=== PATIENT | male | born 1940 | race Caucasian/White ===

== ENCOUNTER 2016-07-05 05:25 | Observation (INO) | payer OTHER ==
--- NOTE | 2016-07-05 05:26 | EDPHY ---
H & P HPI/ROS: HPI CHIEF COMPLAINT: Chest pain HISTORY OF PRESENT ILLNESS: This patient very pleasant 76-year-old male significant past medical history for coronary artery disease with 1 stent, Parkinson's disease with a GJ tube with infusion of Parkinson medication continuously. His is at bedside and brought him here in the emergency room by private vehicle for chest discomfort and left-sided chest pain. Patient states that around 4 o'clock in the morning he developed discomfort in his chest he woke his up from sleep and states that he had a thump in his chest" and started complaining of left-sided chest discomfort he describes this as a pain" he does not give a great description of his discomfort in his chest and unclear exactly how long it lasted approximately an hour. the patient kept telling his over and over again he had pain in his chest and so she decided to drive him here to the emergency room for evaluation given his coronary artery history. She does tell me that in the morning is more groggy than normal due to his Parkinson's and at times it is very hard to understand him and at times he has a very hard time lying much wrong. She did give him 2 baby aspirins prior to arrival. Upon arrival here he tells me that the pain in his chest is gone. tThe at bedside tells me that he is at his neurological baseline with Parkinson's. She also tells me does not take any blood thinners. No history of DVT or PE. It is noted that he just had a prolonged hospital stay and rehabilitation stay to a left hip fracture he was seen at [facility] for this and then discharged to rehab at [facility] and then went to a long-term facility and then spent some brief 10 days in a hotel. states that he broke his hip she believes May 04 and was discharged around June 07. Past Medical History: Parkinson's disease, coronary disease with 1 stent Past Surgical History: left hip surgery, G/J tube. Social History: Denies use of drugs alcohol tobacco products Family History: Noncontributory ROS REVIEW OF SYSTEMS: A comprehensive 10 point review of systems is otherwise negative aside from elements mentioned in the history of present illness. Exam Constitutional appears well nontoxic, triage nursing summary reviewed, vital signs reviewed, awake/alert. Eyes normal conjunctivae and sclera, EOMI, PERRLA. HENT normal inspection, atraumatic, moist mucus membranes, no epistaxis, neck supple/ no meningismus, no raccoon eyes. Respiratory clear to auscultation bilaterally, normal breath sounds, no respiratory distress, no wheezing. Cardiovascular rate normal, regular rhythm, no murmur, no edema, distal pulses normal. Gastrointestinal peg tube present in abdomen, clean dry and intact, no significant tenderness on exam, soft, non-tender, no rebound, no guarding, normal bowel sounds, no distension, no pulsatile mass. Genitourinary no CVA tenderness. Musculoskeletal no midline vertebral tenderness, full range of motion, no calf swelling, no tenderness of extremities, no meningismus, good pulses, neurovascularly intact. Skin pink, warm, & dry, no rash, skin atraumatic. Neurologic awake, alert and oriented x 3, AAOx3, moves all 4 extremities equally, motor intact, sensory intact, CN II-XII intact, normal cerebellar, normal vision, normal speech. Psychiatric normal mood/affect. Heme/Lymph/Immune no lymphadenopathy. Differential diagnosis includes but is not limited to: ACS, atypical chest pain , pneumothorax, pneumonia, pulmonary embolism, aortic dissection, congestive heart failure, tumor, musculoskeletal pain, esophageal pain, GERD, peptic ulcer disease, pancreatitis Medical Decision Making: This patient had an IV established obtain blood work including cardiac marker he will need a chest x-ray and EKG. Due to his recent prolonged hospitalization and rehab I will check a D-dimer to make sure he does not have a pulmonary embolism. 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 Re-evaluation: EKG interpretation by me on record in [employer] system. Impression the time of EKG 5:33 a.m., this is sinus rhythm rate of 72 is a similar appearing EKG when compared to his old EKG on 11/05/2014 0554; at this time this patient tells me that he is chest pain-free. No complaints. ED x-ray chest one view: Negative for acute cardiopulmonary disease. Image interpreted by myself. 0657: re-examination at this time patient is resting comfortably chest pain- free patient will be admitted to the hospitalist services spoke with Dr. Ybarra agrees for admission. agrees at bedside as well. Plan is for cardiac rule out. Initial troponin negative initial EKG negative D-dimer negative. Chest x-ray unremarkable. Source: Patient - Personal History Tetanus Vaccine Date: < 10 YEARS - Medical/Surgical History Hx Asthma: No Hx Chronic Respiratory Disease: No Hx Diabetes: No Hx Cardiac Disease: Yes Hx Renal Disease: No Hx Cirrhosis: No Hx Alcoholism: No Hx HIV/AIDS: No Hx Splenectomy or Spleen Trauma: No Other PMH: Parkinson's, back surgery, Cardiac stent 2010, CAD, dyslipidemia, ELVIRA , BPH, L shoulder laparascopic rotator cuff repair 04/30/2014 - Social History Smoking Status: Former smoker Constitutional: Initial Vital Signs Temperature (C) 36.6 C 07/05/16 05:25 Heart Rate 75 07/05/16 05:25 Respiratory Rate 24 H 07/05/16 05:25 Blood Pressure 100/69 07/05/16 05:25 O2 Sat (%) 94 07/05/16 05:25 O2 Delivery Mode Nasal Cannula O2 (L/minute) 2 Allergies/Adverse Reactions: meperidine HCl [From Demerol] Allergy (Severe, Verified 07/05/16 05:39) Hypotension Penicillins Allergy (Severe, Verified 07/05/16 05:39) Rash secobarbital sodium [From Seconal] Allergy (Severe, Verified 07/05/16 05:39) Hypotension lorazepam [From Ativan] Allergy (Mild, Verified 07/05/16 05:39) paridoxal effect daptomycin Allergy (Verified 07/05/16 05:39) nitrofurantoin [Nitrofurantoin] Allergy (Verified 07/05/16 05:39) prochlorperazine [From Compazine] Allergy (Unverified 07/05/16 05:39) promethazine HCl [From Phenergan] Allergy (Unverified 07/05/16 05:39) DAPTOMYCINE Allergy (Intermediate, Uncoded 07/05/16 05:39) Rash Home Medications: Medication Instructions Recorded Albuterol [Proventil Inhaler HFA 2 puffs IH DAILY PRN 05/01/14 (*)] Aspirin [Aspirin 325 mg (*)] 325 mg PO HS 05/01/14 Budesonide/Formoterol 160/4.5 2 puffs IH DAILY 05/01/14 [Symbicort 160-4.5 Mcg Inh (*)] Cholecalciferol Vit D3 [Vitamin D3 1,000 units PO DAILY 05/01/14 (*)] Darifenacin Hydrobromide [Enablex] 15 mg PO DAILY@06 05/01/14 Diclofenac Sodium [Voltaren 50 MG 50 mg PO DAILY PRN 05/01/14 (*)] Diclofenac Sodium [Voltaren Gel 1 beatriz TP DAILY PRN 05/01/14 (*)] Finasteride [Proscar 5 MG (*)] 5 mg PO DAILY@05/01/14 Fluticasone Nasal [Flonase Nasal 1 sprays NASAL DAILY 05/01/14 [place]] Glucosamine Sulfate 2Kcl 1,000 mg PO DAILY 05/01/14 [Glucosamine] Ibuprofen [Motrin (*)] 400 mg PO TID PRN 05/01/14 Multivitamins [Multivitamin (*)] 1 each PO DAILY 05/01/14 [place]-3 Fatty Acids [Fish Oil 1000 1,000 mg PO DAILY 05/01/14 mg (*)] Omeprazole 20 mg PO DAILY 05/01/14 QUEtiapine FUMARATE [Seroquel 25 50 mg PO HS 05/01/14 mg (*)] Selegiline HCl [Zelapar] 2.5 mg PO DAILY@05/01/14 Tamsulosin HCl [Flomax 0.4 MG (*)] 0.4 mg PO DAILY@05/01/14 cloZAPine [Clozaril (*)] 50 mg PO HS 11/05/14 Afrin 07/05/16 Duopa 4.63 mg-20 mg/ml Suspens 07/05/16 Folic Acid 07/05/16 Myrbetriq 07/05/16 Stool Softener 07/05/16 Tylenol 07/05/16 VITAMIN E 07/05/16 Medical Decision Making - Data Points Laboratory Results: Laboratory Results 07/05/16 06:15 07/05/16 06:00 07/05/16 07/05/16 06:15 06:00 WBC 6.23 10^3/uL REJ (3.80-9.50) RBC 3.84 L 10^6/uL TNP (4.40-6.38) Hgb 12.3 L g/dL TNP (13.7-17.5) Hct 37.8 L % TNP (40.0-51.0) MCV 98.4 fL TNP (81.5-99.8) MCH 32.0 pg TNP (27.9-34.1) MCHC 32.5 g/dL TNP (32.4-36.7) RDW 13.0 % TNP (11.5-15.2) Plt Count 212 10^3/uL TNP (150-400) MPV 9.2 fL TNP (8.7-11.7) Neut % (Auto) 59.7 % TNP (39.3-74.2) Lymph % (Auto) 26.0 % TNP (15.0-45.0) [place] % (Auto) 7.9 % TNP (4.5-13.0) Eos % (Auto) 5.9 % TNP (0.6-7.6) Baso % (Auto) 0.3 % TNP (0.3-1.7) Nucleat RBC Rel Count 0.0 % TNP (0.0-0.2) Absolute Neuts (auto) 3.72 10^3/uL TNP (1.70-6.50) Absolute Lymphs (auto) 1.62 10^3/uL TNP (1.00-3.00) Absolute Monos (auto) 0.49 10^3/uL TNP (0.30-0.80) Absolute Eos (auto) 0.37 10^3/uL TNP (0.03-0.40) Absolute Basos (auto) 0.02 10^3/uL TNP (0.02-0.10) Absolute Nucleated RBC 0.00 10^3/uL TNP (0-0.01) Immature Gran % 0.2 % TNP (0.0-1.1) Immature Gran # 0.01 10^3/uL TNP (0.00-0.10) PT 15.1 H SEC (12.0-15.0) INR 1.19 H (0.83-1.16) APTT 28.0 SEC (23.0-38.0) D-Dimer 0.40 ug/mLFEU (0.00-0.50) Sodium 138 mEq/L (134-144) Potassium 3.9 mEq/L (3.5-5.2) Chloride 106 mEq/L (97-110) Carbon Dioxide 26 mEq/l (22-31) Anion Gap 6 mEq/L (8-16) BUN 18 mg/dL (7-23) Creatinine 0.6 L mg/dL (0.7-1.3) Estimated GFR > 60 Glucose 87 mg/dL (70-100) Calcium 8.7 mg/dL (8.5-10.4) Magnesium 2.0 mg/dL (1.6-2.3) Total Bilirubin 0.9 mg/dL (0.1-1.4) Conjugated Bilirubin 0.7 H mg/dL (0.0-0.5) Unconjugated Bilirubin 0.2 mg/dL (0.0-1.1) AST 23 IU/L (17-59) ALT 19 L IU/L (21-72) Alkaline Phosphatase 72 IU/L (38-126) Creatine Kinase 103 IU/L (0-224) CK-MB (CK-2) Fraction 2.12 ng/mL (0-3.19) Troponin I < 0.012 ng/mL (0-0.034) NT-Pro-B Natriuret Pep 72 pg/mL (0-125) Total Protein 6.1 L g/dL (6.3-8.2) Albumin 3.6 g/dL (3.5-5.0) Lipase 80.0 IU/L (23-300) Medications Given: Discontinued Medications Aspirin (Aspirin) 324 mg PO EDNOW ONE Stop: 07/05/16 05:32 Last Admin: 07/05/16 06:07 Dose: Not Given Sodium Chloride (Ns) 500 mls @ 0 mls/hr IV ONCE ONE PRN Reason: As Directed Stop: 07/05/16 05:32 Last Admin: 07/05/16 06:00 Dose: 500 mls Departure - Departure Disposition: [facility] Inpatient Acute Clinical Impression: Chest pain Qualifiers: Chest pain type: unspecified Qualifier Code: (R07.9) Chest pain, unspecified Condition: Fair
[2016-07-05] MEDS ORDERED: NITROGLYCERIN 0.4 MG BTL SL PRN (05:31)
[2016-07-05] MEDS ORDERED: NS 500 ML IV ONE (05:31)
[2016-07-05] MEDS ORDERED: ASPIRIN 81 MG CHEWABLE TAB PO ONE (05:31)
--- NOTE | 2016-07-05 05:35 | CPEKG ---
Heart Rate: 72 RR Interval: 833 P-R Interval: 152 QRSD Interval: 96 QT Interval: 376 QTC Interval: 412 P [place]: 85 QRS [place]: 8 T Wave [place]: 52 EKG Severity - NORMAL ECG - EKG Impression: SINUS RHYTHM Electronically Signed By: Isael Oseguera 05-Jul-2016 07:02:04
[2016-07-05 06:17] LABS: INR 1.19 (0.83-1.16); PROTIME(PATIENT) 15.1 SEC (12.0-15.0)
[2016-07-05 06:25] LABS: % IMMATURE GRANULYOCYTES 0.2 % (0.0-1.1); ABSOLUTE IMMATURE GRANULOCYTES 0.01 10^3/uL (0.00-0.10); ADD DIFF? NO; ADD MORPH? NO; ADD SCAN? NO; ATYPICAL LYMPHOCYTE FLAG 0 (0-99); FRAGMENT RBC FLAG 0 (0-99); HEMATOCRIT 37.8 % (40.0-51.0); HEMOGLOBIN 12.3 g/dL (13.7-17.5); LEFT SHIFT FLG 0 (0-99); LIPEMIA HEMOLYSIS FLAG 80 (0-99); MEAN CELL HEMOGLOBIN CONCENTR. 32.5 g/dL (32.4-36.7); MEAN CELL VOLUME 98.4 fL (81.5-99.8); MEAN PLATELET VOLUME 9.2 fL (8.7-11.7); PLATELET CLUMPS FLAG 0 (0-99); PLATELET COUNT 212 10^3/uL (150-400); RED BLOOD CELL COUNT 3.84 10^6/uL (4.40-6.38)
[2016-07-05 06:36] LABS: ALANINE AMINOTRANSFERASE 19 IU/L (21-72); ALBUMIN 3.6 g/dL (3.5-5.0); ALKALINE PHOSPHATASE 72 IU/L (38-126); ANION GAP 6 mEq/L (8-16); ASPARTATE AMINOTRANSFERASE 23 IU/L (17-59); BILIRUBIN,TOTAL 0.9 mg/dL (0.1-1.4); BILIRUBIN-CONJUGATED 0.7 mg/dL (0.0-0.5); BILIRUBIN-UNCONJUGATED 0.2 mg/dL (0.0-1.1); CALCIUM 8.7 mg/dL (8.5-10.4); CARBON DIOXIDE 26 mEq/l (22-31); CHLORIDE 106 mEq/L (97-110); CREATININE 0.6 mg/dL (0.7-1.3); GLOMERULAR FILTRATION RATE > 60; GLUCOSE 87 mg/dL (70-100); POTASSIUM 3.9 mEq/L (3.5-5.2); SODIUM 138 mEq/L (134-144); TOTAL PROTEIN 6.1 g/dL (6.3-8.2)
[2016-07-05 06:47] LABS: CREATINE KINASE-MB FRACTION 2.12 ng/mL (0-3.19); TROPONIN I < 0.012 ng/mL (0-0.034)
[2016-07-05] MEDS ORDERED: ONDANSETRON DISINTEGRATING 4 MG TAB PO PRN (07:17)
[2016-07-05] MEDS ORDERED: ACETAMINOPHEN 325 MG TAB PO PRN (07:17)
[2016-07-05] MEDS ORDERED: HYDROCODONE/APAP 5/325 TAB PO PRN (07:17)
[2016-07-05] MEDS ORDERED: ONDANSETRON 4 MG/2 ML VIAL IVP PRN (07:17)
--- NOTE | 2016-07-05 07:26 | PDGENHP ---
History and Physical - Chief Complaint chest pain - History of Present Illness Patient is 76/M with advanced parkinson's disease, h/o CAD (pci in distant past ) and BPH/recurrent UTIs who presents to the ED with complaint of an episode of chest pain. Pt's provides much of the history. She states patient awoke her at around 4am stating he had suddenly felt a deep thump in his L chest after walking back to the bed from the using restroom. After the initial "thump " he reported some dull epigastric discomfort. There was no associated nausea, lightheadedness, palpitations, diaphoresis and symptoms seemed to have resolved within 20 minutes. However, given the severity of the initial pain and the fact that the patient kept expressing he had never felt something like that before, patient's decided to bring him to the ED. By arrival to the ED patient was asymptomatic, afebrile, with stable VS. Initial EKG is without evidence of ischemia, initial labs including troponin and d dimer were wnl. Patient last had a stress test about 1 year ago here at [facility], which was normal. Patient was then admitted to the hospitalist service for further management. History Information - Allergies/Home Medication List Allergies/Adverse Reactions: meperidine HCl [From Demerol] Allergy (Severe, Verified 07/05/16 05:39) Hypotension Penicillins Allergy (Severe, Verified 07/05/16 05:39) Rash secobarbital sodium [From [place]] Allergy (Severe, Verified 07/05/16 05:39) Hypotension lorazepam [From Ativan] Allergy (Mild, Verified 07/05/16 05:39) paridoxal effect daptomycin Allergy (Verified 07/05/16 05:39) nitrofurantoin [Nitrofurantoin] Allergy (Verified 07/05/16 05:39) prochlorperazine [From Compazine] Allergy (Unverified 07/05/16 05:39) promethazine HCl [From Phenergan] Allergy (Unverified 07/05/16 05:39) DAPTOMYCINE Allergy (Intermediate, Uncoded 07/05/16 05:39) Rash Home Medications: Albuterol [Proventil Inhaler HFA (*)] 2 puffs IH DAILY PRN 05/01/14 [Last Taken Unknown] Aspirin [Aspirin 325 mg (*)] 325 mg PO HS 05/01/14 [Last Taken 11/04/14] Budesonide/Formoterol 160/4.5 [Symbicort 160-4.5 Mcg Inh (*)] 2 puffs IH DAILY 05/01/14 [Last Taken 11/03/14] Cholecalciferol Vit D3 [Vitamin D3 (*)] 1,000 units PO DAILY 05/01/14 [Last Taken 11/04/14] Darifenacin Hydrobromide [Enablex] 15 mg PO DAILY@05/01/14 [Last Taken ] Diclofenac Sodium [Voltaren 50 MG (*)] 50 mg PO DAILY PRN 05/01/14 [Last Taken Unknown] Diclofenac Sodium [Voltaren Gel (*)] 1 beatriz TP DAILY PRN 05/01/14 [Last Taken Unknown] Finasteride [Proscar 5 MG (*)] 5 mg PO DAILY@05/01/14 [Last Taken 11/04/14] Fluticasone Nasal [Flonase Nasal [place]] 1 sprays NASAL DAILY 05/01/14 [Last Taken 11/04/14] Glucosamine Sulfate 2Kcl [Glucosamine] 1,000 mg PO DAILY 05/01/14 [Last Taken ] Ibuprofen [Motrin (*)] 400 mg PO TID PRN 05/01/14 [Last Taken Unknown] Multivitamins [Multivitamin (*)] 1 each PO DAILY 05/01/14 [Last Taken 11/04/14] Sal[place]-3 Fatty Acids [Fish Oil 1000 mg (*)] 1,000 mg PO DAILY 05/01/14 [Last Taken 11/04/14] Omeprazole 20 mg PO DAILY 05/01/14 [Last Taken 11/04/14] QUEtiapine FUMARATE [Seroquel 25 mg (*)] 50 mg PO HS 05/01/14 [Last Taken ] Selegiline HCl [Zelapar] 2.5 mg PO DAILY@05/01/14 [Last Taken 11/05/14 06:00] Tamsulosin HCl [Flomax 0.4 MG (*)] 0.4 mg PO DAILY@05/01/14 [Last Taken 11/05 06:00] cloZAPine [Clozaril (*)] 50 mg PO HS 11/05/14 [Last Taken 11/04/14] Afrin 07/05/16 [Last Taken Unknown] Duopa 4.63 mg-20 mg/ml Suspens 07/05/16 [Last Taken Unknown] Folic Acid 07/05/16 [Last Taken Unknown] Myrbetriq 07/05/16 [Last Taken Unknown] Stool Softener 07/05/16 [Last Taken Unknown] Tylenol 07/05/16 [Last Taken Unknown] VITAMIN E 07/05/16 [Last Taken Unknown] I have personally reviewed and updated: family history, medical history, social history, surgical history - Past Medical History Additional medical history: Advanced parkinson's dementia. CAD (PCI x 1 > 5 years ago). recent hospitalization for fall resulting in L hip fracture at [facility], s/p subacute rehab stay, recently discharged home. BPH with recurrent UTIs - Surgical History Additional surgical history: spinal fusion surgeries. hernia repair. rotator cuff repair - Family History Positive for: non-pertinent - Social History Smoking Status: Former smoker Alcohol Use: None Drug Use: None Additional social history: Patient lives with his and is dependent on her for most ADLs. Usually walks independently, occasionally uses walker. Review of Systems ROS: 10pt was reviewed & negative except for what was stated in HPI & below Physical Exam Temp Pulse Resp BP Pulse Ox 36.6 C 68 18 118/76 99 07/05/16 05:25 07/05/16 07:13 07/05/16 07:13 07/05/16 07:13 07/05/16 07:13 O2 (L/minute) 2 Constitutional: appears nourished, not in pain, chronically ill appearing Eyes: PERRL, anicteric sclera, EOMI Ears, Nose, Mouth, Throat: moist mucous membranes, hearing normal, ears appear normal, no oral mucosal ulcers Cardiovascular: regular rate and rhythym, no murmur, rub, or gallop, pulses symmetric bilaterally, No JVD, No edema Peripheral Pulses: 2+: dorsalis-pedis (R), dorsalis-pedis (L) Respiratory: no respiratory distress, no rales or rhonchi, clear to auscultation Gastrointestinal: normoactive bowel sounds, soft, non-tender abdomen, no palpable masses, other (J-tube present for drug infusion) Genitourinary: no bladder fullness, no bladder tenderness Skin: warm, normal color, no rashes or abrasions, no fluctuance, no induration, No mottled Musculoskeletal: full muscle strength, no muscle tenderness Neurologic: AAOx3, sensation intact bilaterally, CN II-XII Intact, No weakness, No numbness Psychiatric: interacting appropriately, not anxious, not encephalopathic, thought process linear Lab Data & Imaging Review 07/05/16 06:15 07/05/16 06:00 WBC 6.23 10^3/uL (3.80-9.50) 07/05/16 06:15 RBC 3.84 10^6/uL (4.40-6.38) L 07/05/16 06:15 Hgb 12.3 g/dL (13.7-17.5) L 07/05/16 06:15 Hct 37.8 % (40.0-51.0) L 07/05/16 06:15 MCV 98.4 fL (81.5-99.8) 07/05/16 06:15 MCH 32.0 pg (27.9-34.1) 07/05/16 06:15 MCHC 32.5 g/dL (32.4-36.7) 07/05/16 06:15 RDW 13.0 % (11.5-15.2) 07/05/16 06:15 Plt Count 212 10^3/uL (150-400) 07/05/16 06:15 MPV 9.2 fL (8.7-11.7) 07/05/16 06:15 Neut % (Auto) 59.7 % (39.3-74.2) 07/05/16 06:15 Lymph % (Auto) 26.0 % (15.0-45.0) 07/05/16 06:15 [place] % (Auto) 7.9 % (4.5-13.0) 07/05/16 06:15 Eos % (Auto) 5.9 % (0.6-7.6) 07/05/16 06:15 Baso % (Auto) 0.3 % (0.3-1.7) 07/05/16 06:15 Nucleat RBC Rel Count 0.0 % (0.0-0.2) 07/05/16 06:15 Absolute Neuts (auto) 3.72 10^3/uL (1.70-6.50) 07/05/16 06:15 Absolute Lymphs (auto) 1.62 10^3/uL (1.00-3.00) 07/05/16 06:15 Absolute Monos (auto) 0.49 10^3/uL (0.30-0.80) 07/05/16 06:15 Absolute Eos (auto) 0.37 10^3/uL (0.03-0.40) 07/05/16 06:15 Absolute Basos (auto) 0.02 10^3/uL (0.02-0.10) 07/05/16 06:15 Absolute Nucleated RBC 0.00 10^3/uL (0-0.01) 07/05/16 06:15 Immature Gran % 0.2 % (0.0-1.1) 07/05/16 06:15 Immature Gran # 0.01 10^3/uL (0.00-0.10) 07/05/16 06:15 PT 15.1 SEC (12.0-15.0) H 07/05/16 06:00 INR 1.19 (0.83-1.16) H 07/05/16 06:00 APTT 28.0 SEC (23.0-38.0) 07/05/16 06:00 D-Dimer 0.40 ug/mLFEU (0.00-0.50) 07/05/16 06:00 Sodium 138 mEq/L (134-144) 07/05/16 06:00 Potassium 3.9 mEq/L (3.5-5.2) 07/05/16 06:00 Chloride 106 mEq/L (97-110) 07/05/16 06:00 Carbon Dioxide 26 mEq/l (22-31) 07/05/16 06:00 Anion Gap 6 mEq/L (8-16) 07/05/16 06:00 BUN 18 mg/dL (7-23) 07/05/16 06:00 Creatinine 0.6 mg/dL (0.7-1.3) L 07/05/16 06:00 Estimated GFR > 60 07/05/16 06:00 Glucose 87 mg/dL (70-100) 07/05/16 06:00 Calcium 8.7 mg/dL (8.5-10.4) 07/05/16 06:00 Magnesium 2.0 mg/dL (1.6-2.3) 07/05/16 06:00 Total Bilirubin 0.9 mg/dL (0.1-1.4) 07/05/16 06:00 Conjugated Bilirubin 0.7 mg/dL (0.0-0.5) H 07/05/16 06:00 Unconjugated Bilirubin 0.2 mg/dL (0.0-1.1) 07/05/16 06:00 AST 23 IU/L (17-59) 07/05/16 06:00 ALT 19 IU/L (21-72) L 07/05/16 06:00 Alkaline Phosphatase 72 IU/L (38-126) 07/05/16 06:00 Creatine Kinase 103 IU/L (0-224) 07/05/16 06:00 CK-MB (CK-2) Fraction 2.12 ng/mL (0-3.19) 07/05/16 06:00 Troponin I < 0.012 ng/mL (0-0.034) 07/05/16 06:00 NT-Pro-B Natriuret Pep 72 pg/mL (0-125) 07/05/16 06:00 Total Protein 6.1 g/dL (6.3-8.2) L 07/05/16 06:00 Albumin 3.6 g/dL (3.5-5.0) 07/05/16 06:00 Lipase 80.0 IU/L (23-300) 07/05/16 06:00 Visualized and Interpreted Chest x-ray results: Yes Chest X-Ray results: no infiltrate, normal Visualized and Interpreted EKG results: Yes EKG Interpretation: Positive for: normal sinsus rhythm. Negative for: NS ST wave abnormalities Assessment & Plan Assessment: Patient is 76/M with advanced parkinson's disease and h/o CAD who presents to the ED after an episode of sudden intense L sided chest pain. Initial ED w/u unrevealing. Plan: # chest pain Atypical in description, however, given pt's cardiac history and risk factors, will r/o ACS. Differential also includes gastritis/gerd. Will admit under observation status, trend troponins, repeat EKG. Given normal nuclear stress test in 2014, and patient and his 's hesitance for a long hospital stay (> 10 hrs) due to his PD med needs. Pt's website optimization strategist is Dr. Staples, will asses need for inpt stress vs arranging an outpt study. # advanced parkinson's disease Per pt's , he is at his baseline neurologic status, and usually is unless there is any interruption in his med dosing. Will attempt to maintain continuity in this. # BPH No urinary symptoms, UA negative, will cont home med. # chronic back pain Cont home pain regimen. No complaint of acute pain # dispo: admit to observation status to r/o ACS # full code
[2016-07-05] MEDS ORDERED: ENOXAPARIN 40 MG/0.4 ML SYR SC SCH (09:00)
--- NOTE | 2016-07-05 09:40 | DX ---
Portable AP upright chest July 05, 2016, 0546 hours HISTORY: Chest pain. FINDINGS: Compare 2015, 2014, 2013. Lungs are clear and there are no pleural effusions. Heart size is normal. No pneumothorax. Spinal fusion hardware is found at the thoracolumbar junction. IMPRESSION: No acute cardiopulmonary features.
[2016-07-05 10:04] VITALS: BP 137/87; PULSE 59; RESP 13; TEMP 96.8; O2SAT 97
--- NOTE | 2016-07-05 14:58 | GDS ---
[f rep st] DISCHARGE SUMMARY DISCHARGE DIAGNOSES: 1. Chest pain with negative enzymes and electrocardiogram. 2. History of coronary artery disease, status post percutaneous transluminal coronary angioplasty an d stenting in 2010 to the left circumflex. 3. History of BPH. 4. History of sleep apnea. 5. History of Parkinson disease. 6. History for frequent urinary tract infections. BRIEF HISTORY: Please see dictated H and P for complete details. In brief, Giovanny Russo is a 76-year-old male with a history of known CAD, Parkinson disease, BPH, and recurrent UTIs, who was zander kened to urinate at 4 am today. Upon returning to bed, he noted a "thump" in his chest. There was n o associated nausea, lightheadedness, dizziness, or palpitation. Symptoms were brief and did not rec ur. He ECG and enzymes have been negative. Options were reviewed, and patient and his prefer t o be discharged home for outpatient stress testing. In 2012, he did have a chest pain episode, for which he proceeded to cardiac catheterization. That s howed patent stents, and there was a 35-40% ostial lesion in the circumflex and LAD had minimal lumin al irregularities. In 2014, he had a chest pain episode, for which a nuclear stress test was obtain ed and was negative for ischemia. RESULTS PENDING: None. DIET: Per previous. ACTIVITY: As tolerated. DISCHARGE MEDICATIONS: Please see med reconciliation. FOLLOWUP: 1. Lexiscan stress test this week. 2. Follow up after testing. /[id number]/[id number]
== END 2016-07-05 14:08 | disposition home or self-care (01) ==
LOC: F2W 08:16
PROVIDERS: ADMIT Internal Medicine; ATTEND Internal Medicine Cardiovascular Disease
DX: R07.9 Chest pain, unspecified (principal); I25.10 Atherosclerotic heart disease of native coronary artery without angina pectoris; Z95.5 Presence of coronary angioplasty implant and graft; N40.0 Benign prostatic hyperplasia without lower urinary tract symptoms; G47.33 Obstructive sleep apnea (adult) (pediatric); G20 Parkinson's disease
CPT/HCPCS: 71010; 93005; 96360; 99285; G0378

== ENCOUNTER → 2016-07-17 | Outpatient (CLI) | payer OTHER | LOC: BHFA 13:00 | PROVIDERS: ATTEND Internal Medicine Cardiovascular Disease | DX: R07.9 Chest pain, unspecified (principal); Z79.899 Other long term (current) drug therapy | CPT/HCPCS: 78452; 93017; A9500; J2785 ==

== ENCOUNTER → 2016-08-01 | Outpatient (CLI) | payer OTHER | LOC: FIMAGING 10:57 | PROVIDERS: ATTEND Family Medicine | DX: M54.5 Low back pain (principal); M25.551 Pain in right hip; M25.552 Pain in left hip; M53.3 Sacrococcygeal disorders, not elsewhere classified; S72.111D Displaced fracture of greater trochanter of right femur, subsequent encounter for closed fracture with routine healing ==

== ENCOUNTER → 2016-10-04 | Outpatient (CLI) | payer OTHER | LOC: FLAB 13:22 → FIMAGING 13:22 → EDSTATUS 13:40 | PROVIDERS: ATTEND Family Medicine | DX: J98.4 Other disorders of lung (principal); G20 Parkinson's disease ==

== ENCOUNTER 2016-10-05 12:46 | Inpatient (IN) | payer OTHER ==
--- NOTE | 2016-10-05 13:05 | EDPHY ---
H & P Time Seen by Provider: 10/05/16 12:59 HPI/ROS: CHIEF COMPLAINT: Altered mental status HISTORY OF PRESENT ILLNESS: History from patient and his . He has a long history of Parkinson's disease and typically gets more confused when he gets an infection especially frequent UTIs. Patient started new medicines selegiline last week and only took it for 3 days and stop Sunday. Yesterday he had some yellow liquid gushing from his feeding tube stoma aureus constantly getting infusion of Duopa. Over the past week he has started coughing which is nonproductive and not associated with shortness of breath but was seen at his primary care physician practice yesterday and started on moxifloxacin and had a chest x-ray which was interpreted as right upper lung pneumonia, probably aspiration. His speech therapist has been concerned about aspiration for several months ice his swallowing is been compromised because of his Parkinson' s. Today is more confused according to his . His speech is more difficult to understand. Not associated with headache or weakness or numbness in extremities particularly. REVIEW OF SYSTEMS: Eye: no change in vision ENT: no sore throat Cardiac: no chest pain or syncope Pulmonary: As in HPI Abdomen: no vomiting, diarrhea, abdominal pain Musculoskeletal: no back pain Skin: no rash Neuro: As in HPI Constitutional: no fever : no urinary symptoms A comprehensive 10 point review of systems is otherwise negative aside from elements mentioned in the history of present illness. PAST MEDICAL HISTORY: Includes Parkinson's disease, coronary disease with stenting in 2010, hyperlipidemia, prostatic hypertrophy, left shoulder rotator cuff surgery April 2014, obstructive sleep apnea. Social history: Ex smoker, General Appearance: Alert and follows commands. Eyes: No scleral icterus. ENT, Mouth: Dry mucous membranes. Respiratory: Slight crackles in all lung [place], no retractions. Cardiovascular: Regular rate and rhythm. Gastrointestinal: Abdomen is soft and non tender. Neurological: Alert, follows commands, speech is impaired by Parkinson's, a little bit worse than baseline per . Spontaneously moving all 4 extremitis. Skin: Warm and dry, no rashes. Musculoskeletal: No peripheral edema and no joint swelling. Psychiatric: Not agitated. Emergency Department course/MDM: Discussed with Maycol Howard, 1324; start Ertapenem, admit. Does not meet SIRS criteria in the emergency department. Negative lactate. Invanz 1g given in ED without reaction. Smoking Status: Former smoker Constitutional: Initial Vital Signs Temperature (C) 36.6 C 10/05/16 12:54 Heart Rate 90 10/05/16 12:54 Respiratory Rate 18 10/05/16 12:54 Blood Pressure 98/70 L 10/05/16 12:54 O2 Sat (%) 92 10/05/16 12:54 O2 Delivery Mode Room Air Allergies/Adverse Reactions: meperidine HCl [From Demerol] Allergy (Severe, Verified 10/05/16 12:51) Hypotension Penicillins Allergy (Severe, Verified 10/05/16 14:23) Rash/HIVES secobarbital sodium [From Seconal] Allergy (Severe, Verified 10/05/16 12:51) Hypotension lorazepam [From Ativan] Allergy (Mild, Verified 10/05/16 12:51) paridoxal effect daptomycin Allergy (Verified 10/05/16 12:51) nitrofurantoin [Nitrofurantoin] Allergy (Verified 10/05/16 12:51) prochlorperazine [From Compazine] Allergy (Verified 10/05/16 12:51) promethazine HCl [From Phenergan] Allergy (Verified 10/05/16 12:51) DAPTOMYCINE Allergy (Intermediate, Uncoded 07/05/16 05:39) Rash Home Medications: Medication Instructions Recorded Albuterol [Proventil Inhaler HFA 2 puffs IH DAILY PRN 05/01/14 (*)] Cholecalciferol Vit D3 [Vitamin D3 1,000 units PO DAILY 05/01/14 (*)] Darifenacin Hydrobromide [Enablex] 15 mg PO HS 05/01/14 Diclofenac Sodium [Voltaren Gel 1 beatriz TP BID PRN 05/01/14 (*)] Finasteride [Proscar 5 MG (*)] 5 mg PO DAILY 05/01/14 Fluticasone Nasal [Flonase Nasal 1 sprays NASAL DAILY 05/01/14 [place]] Omeprazole 40 mg PO BID 05/01/14 QUEtiapine FUMARATE [Seroquel 25 62.5 mg PO HS 05/01/14 mg (*)] Tamsulosin HCl [Flomax 0.4 MG (*)] 0.4 mg PO DAILY 05/01/14 cloZAPine [Clozaril (*)] 75 mg PO HS 11/05/14 Acetaminophen [Tylenol ES 500 mg 500 mg PO DAILY PRN 07/05/16 (*)] Aspirin [Aspirin 81mg (*)] 162 mg PO HS 07/05/16 Carbidopa/Levodopa [Duopa 4.63 0 ml MC TID 07/05/16 mg-20 mg/ml Suspens] Cyanocobalamin [Vitamin B12 (*)] 500 mcg PO DAILY 07/05/16 Folic Acid [Folic Acid 1 MG (*)] 800 mcg PO DAILY 07/05/16 Glucosamine Sulfate [Glucosamine 500 mg PO DAILY 07/05/16 Sulfate 500 MG (*)] Herbals/Supplements -Info Only 1 ea PO DAILY 07/05/16 Mirabegron [Myrbetriq] 25 mg PO HS 07/05/16 Budesonide/Formoterol Fumarate 2 puffs IH BID 10/05/16 [Symbicort 80-4.5 Mcg Inhaler] Diclofenac Sodium [Voltaren 75 MG 75 mg PO DAILY PRN 10/05/16 (*)] Methocarbamol [Robaxin 750 mg (*)] 750 mg PO DAILY PRN 10/05/16 Moxifloxacin [Avelox 400 mg (*)] 400 mg PO DAILY 10/05/16 Medical Decision Making - Diagnostics Imaging Results: Chest x-ray viewed independently by myself and interpreted shows worsening right upper lung infiltrate. Imaging: I viewed and interpreted images myself Differential Diagnosis: Differential for altered mental status considered including but not limited to stroke, ICH, TANK CALIBRATOR infection, UTI, pneumonia, metabolic. Consult/Admit Bed Type: [place] [id number] - Data Points Laboratory Results: Laboratory Results 10/05/16 13:23 10/05/16 13:20 10/05/16 10/05/16 10/05/16 13:30 13:23 13:23 WBC 5.18 10^3/uL 10^3/uL (3.80-9.50) RBC 3.82 10^6/uL L 10^6/uL (4.40-6.38) Hgb 12.1 g/dL L g/dL (13.7-17.5) Hct 36.9 % L % (40.0-51.0) MCV 96.6 fL fL (81.5-99.8) MCH 31.7 pg pg (27.9-34.1) MCHC 32.8 g/dL g/dL (32.4-36.7) RDW 14.0 % % (11.5-15.2) Plt Count 180 10^3/uL 10^3/uL (150-400) MPV 9.8 fL fL (8.7-11.7) Neut % (Auto) 80.1 % H % (39.3-74.2) Lymph % (Auto) 10.8 % L % (15.0-45.0) [place] % (Auto) 8.3 % % (4.5-13.0) Eos % (Auto) 0.4 % L % (0.6-7.6) Baso % (Auto) 0.0 % L % (0.3-1.7) Nucleat RBC Rel Count 0.0 % % (0.0-0.2) Absolute Neuts (auto) 4.15 10^3/uL 10^3/uL (1.70-6.50) Absolute Lymphs (auto) 0.56 10^3/uL L 10^3/uL (1.00-3.00) Absolute Monos (auto) 0.43 10^3/uL 10^3/uL (0.30-0.80) Absolute Eos (auto) 0.02 10^3/uL L 10^3/uL (0.03-0.40) Absolute Basos (auto) 0.00 10^3/uL L 10^3/uL (0.02-0.10) Absolute Nucleated RBC 0.00 10^3/uL 10^3/uL (0-0.01) Immature Gran % 0.4 % % (0.0-1.1) Immature Gran # 0.02 10^3/uL 10^3/uL (0.00-0.10) PT 14.8 SEC SEC (12.0-15.0) INR 1.16 (0.83-1.16) APTT 30.9 SEC SEC (23.0-38.0) VBG Lactic Acid 1.6 mmol/L mmol/L (0.7-2.1) Sodium Potassium Chloride Carbon Dioxide Anion Gap BUN Creatinine Estimated GFR Glucose Calcium Total Bilirubin 10/05/16 13:20 WBC RBC Hgb Hct MCV MCH MCHC RDW Plt Count MPV Neut % (Auto) Lymph % (Auto) [place] % (Auto) Eos % (Auto) Baso % (Auto) Nucleat RBC Rel Count Absolute Neuts (auto) Absolute Lymphs (auto) Absolute Monos (auto) Absolute Eos (auto) Absolute Basos (auto) Absolute Nucleated RBC Immature Gran % Immature Gran # PT INR APTT VBG Lactic Acid Sodium 140 mEq/L mEq/L (134-144) Potassium 4.1 mEq/L mEq/L (3.5-5.2) Chloride 107 mEq/L mEq/L (97-110) Carbon Dioxide 24 mEq/l mEq/l (22-31) Anion Gap 9 mEq/L mEq/L (8-16) BUN 17 mg/dL mg/dL (7-23) Creatinine 0.5 mg/dL L mg/dL (0.7-1.3) Estimated GFR > 60 Glucose 123 mg/dL H mg/dL (70-100) Calcium 8.6 mg/dL mg/dL (8.5-10.4) Total Bilirubin 0.9 mg/dL mg/dL (0.1-1.4) Medications Given: Discontinued Medications Ertapenem 1 gm/ Sodium (Chloride) 100 mls @ 200 mls/hr IV EDNOW ONE PRN Reason: Protocol Stop: 10/05/16 14:32 Last Admin: 10/05/16 14:37 Dose: 100 mls Sodium Chloride (Ns) 1,000 mls @ 0 mls/hr IV ONCE ONE PRN Reason: Wide Open Stop: 10/05/16 14:22 Last Admin: 10/05/16 14:37 Dose: 1,000 mls Departure - Departure Disposition: [facility] In[facility] Acute Clinical Impression: Aspiration pneumonia Qualifiers: Aspiration pneumonia type: unspecified Laterality: right Lung location: upper lobe of lung Qualified Code(s): J69.0 - Pneumonitis due to inhalation of food and vomit Condition: Good
[2016-10-05 13:51] LABS: % IMMATURE GRANULYOCYTES 0.4 % (0.0-1.1); ABSOLUTE IMMATURE GRANULOCYTES 0.02 10^3/uL (0.00-0.10); ADD DIFF? NO; ADD MORPH? NO; ADD SCAN? NO; ATYPICAL LYMPHOCYTE FLAG 0 (0-99); FRAGMENT RBC FLAG 0 (0-99); HEMATOCRIT 36.9 % (40.0-51.0); HEMOGLOBIN 12.1 g/dL (13.7-17.5); LEFT SHIFT FLG 0 (0-99); LIPEMIA HEMOLYSIS FLAG 80 (0-99); MEAN CELL HEMOGLOBIN 31.7 pg (27.9-34.1); MEAN CELL HEMOGLOBIN CONCENTR. 32.8 g/dL (32.4-36.7); MEAN CELL VOLUME 96.6 fL (81.5-99.8); MEAN PLATELET VOLUME 9.8 fL (8.7-11.7); PLATELET CLUMPS FLAG 0 (0-99); PLATELET COUNT 180 10^3/uL (150-400); RED BLOOD CELL COUNT 3.82 10^6/uL (4.40-6.38)
[2016-10-05] MEDS ORDERED: ERTAPENEM 1 GM in NS 100 ML IV ONE (14:03)
[2016-10-05 14:07] LABS: APTT 30.9 SEC (23.0-38.0); INR 1.16 (0.83-1.16); PROTIME(PATIENT) 14.8 SEC (12.0-15.0)
[2016-10-05 14:16] LABS: ANION GAP 9 mEq/L (8-16); BILIRUBIN,TOTAL 0.9 mg/dL (0.1-1.4); CALCIUM 8.6 mg/dL (8.5-10.4); CARBON DIOXIDE 24 mEq/l (22-31); CHLORIDE 107 mEq/L (97-110); CREATININE 0.5 mg/dL (0.7-1.3); GLOMERULAR FILTRATION RATE > 60; GLUCOSE 123 mg/dL (70-100); POTASSIUM 4.1 mEq/L (3.5-5.2); SODIUM 140 mEq/L (134-144)
[2016-10-05] MEDS ORDERED: NS 1,000 ML IV ONE (14:21)
--- NOTE | 2016-10-05 15:06 | PDGENHP ---
History and Physical - Chief Complaint altered mental status - History of Present Illness 76 y/o male with history of advanced Parkinson's with dementia and dysphagia presents with confusion this morning. He was diagnosed with a possible aspiration pneumonia yesterday and started on Moxifloxacin. He has not been eating much over the past few days but has been noted to be having problems with his swallowing. His reports some shortness of breath and productive cough with clear mucous. His cough has been ongoing for the past several days. Denies fevers or chills. His reports some drainage from around his Stoma from his medication pump. He has had worsening swallowing problems over the past 6 months and has trouble taking pills. his been working with the speech therapist has recommended a video swallow study that is scheduled for 2 weeks for now. History Information - Allergies/Home Medication List Allergies/Adverse Reactions: meperidine HCl [From Demerol] Allergy (Severe, Verified 10/05/16 12:51) Hypotension Penicillins Allergy (Severe, Verified 10/05/16 14:23) Rash/HIVES secobarbital sodium [From Seconal] Allergy (Severe, Verified 10/05/16 12:51) Hypotension lorazepam [From Ativan] Allergy (Mild, Verified 10/05/16 12:51) paridoxal effect daptomycin Allergy (Verified 10/05/16 12:51) nitrofurantoin [Nitrofurantoin] Allergy (Verified 10/05/16 12:51) prochlorperazine [From Compazine] Allergy (Verified 10/05/16 12:51) promethazine HCl [From Phenergan] Allergy (Verified 10/05/16 12:51) DAPTOMYCINE Allergy (Intermediate, Uncoded 07/05/16 05:39) Rash Home Medications: Albuterol [Proventil Inhaler HFA (*)] 2 puffs IH DAILY PRN 05/01/14 [Last Taken Unknown] Cholecalciferol Vit D3 [Vitamin D3 (*)] 1,000 units PO DAILY 05/01/14 [Last Taken 10/05/16] Darifenacin Hydrobromide [Enablex] 15 mg PO HS 05/01/14 [Last Taken 10/04/16] Diclofenac Sodium [Voltaren Gel (*)] 1 beatriz TP BID PRN 05/01/14 [Last Taken Unknown] Finasteride [Proscar 5 MG (*)] 5 mg PO DAILY 05/01/14 [Last Taken 10/05/16] Fluticasone Nasal [Flonase Nasal [place]] 1 sprays NASAL DAILY 05/01/14 [Last Taken 10/05/16] Omeprazole 40 mg PO BID 05/01/14 [Last Taken 10/05/16 80mg] QUEtiapine FUMARATE [Seroquel 25 mg (*)] 62.5 mg PO HS 05/01/14 [Last Taken ] Tamsulosin HCl [Flomax 0.4 MG (*)] 0.4 mg PO DAILY 05/01/14 [Last Taken 10/05/16 ] cloZAPine [Clozaril (*)] 75 mg PO HS 11/05/14 [Last Taken 10/04/16] Acetaminophen [Tylenol ES 500 mg (*)] 500 mg PO DAILY PRN 07/05/16 [Last Taken Unknown] Aspirin [Aspirin 81mg (*)] 162 mg PO HS 07/05/16 [Last Taken 10/04/16] Carbidopa/Levodopa [Duopa 4.63 mg-20 mg/ml Suspens] 0 ml MC TID 07/05/16 [Last Taken 10/05/16] Cyanocobalamin [Vitamin B12 (*)] 500 mcg PO DAILY 07/05/16 [Last Taken 10/05/16] Folic Acid [Folic Acid 1 MG (*)] 800 mcg PO DAILY 07/05/16 [Last Taken 10/05/16] Glucosamine Sulfate [Glucosamine Sulfate 500 MG (*)] 500 mg PO DAILY 07/05/16 [ Last Taken 10/05/16] Herbals/Supplements -Info Only 1 ea PO DAILY 07/05/16 [Last Taken Unknown] Mirabegron [Myrbetriq] 25 mg PO HS 07/05/16 [Last Taken 10/04/16] Budesonide/Formoterol Fumarate [Symbicort 80-4.5 Mcg Inhaler] 2 puffs IH BID [Last Taken 10/05/16] Diclofenac Sodium [Voltaren 75 MG (*)] 75 mg PO DAILY PRN 10/05/16 [Last Taken Unknown] Methocarbamol [Robaxin 750 mg (*)] 750 mg PO DAILY PRN 10/05/16 [Last Taken Unknown] Moxifloxacin [Avelox 400 mg (*)] 400 mg PO DAILY 10/05/16 [Last Taken 10/05/16] I have personally reviewed and updated: family history, medical history, social history, surgical history - Past Medical History Additional medical history: Advanced parkinson's dementia. CAD (PCI x 1 > 5 years ago) with hospital stay in 06/2015 for chest pain. hospitalization for fall resulting in L hip fracture at [facility], s/p subacute rehab stay, recently discharged home. BPH with recurrent UTIs - Surgical History Additional surgical history: spinal fusion surgeries. hernia repair. rotator cuff repair. PEG tube - Family History Positive for: non-pertinent - Social History Smoking Status: Former smoker Additional social history: Patient lives with his and is dependent on her for most ADLs. Usually walks independently, occasionally uses walker. Review of Systems ROS: 10pt was reviewed & negative except for what was stated in HPI & below Physical Exam Temp Pulse Resp BP Pulse Ox 36.9 C 78 14 115/56 L 96 10/05/16 14:40 10/05/16 14:40 10/05/16 14:40 10/05/16 14:40 10/05/16 14:40 Constitutional: no apparent distress, appears nourished, not in pain Eyes: PERRL, anicteric sclera, EOMI Ears, Nose, Mouth, Throat: moist mucous membranes, hearing normal, ears appear normal, no oral mucosal ulcers Cardiovascular: regular rate and rhythym, no murmur, rub, or gallop, No edema Respiratory: no respiratory distress, reduced air movement ( Right lung field) , No expiratory wheeze, No inspiratory crackles Gastrointestinal: normoactive bowel sounds, soft, non-tender abdomen, no palpable masses, other ( medication pump tubing is in place going into what appears to be in the stomach; no signs of infection), No guarding, No rebound Genitourinary: no bladder fullness, no bladder tenderness Skin: warm, normal color, no rashes or abrasions, no fluctuance, no induration, No mottled Musculoskeletal: full muscle strength, no muscle tenderness, normal joint ROM, no joint effusions Neurologic: CN II-XII Intact, No AAOx3 ( oriented to person and day but not place), No facial droop Psychiatric: encephalopathic, poor insight, poor judgement, poor memory Lymph, Heme, Immunologic: no cervical LAD, no supraclavicular LAD Lab Data & Imaging Review 10/05/16 13:23 10/05/16 13:20 WBC 5.18 10^3/uL (3.80-9.50) 10/05/16 13:23 RBC 3.82 10^6/uL (4.40-6.38) L 10/05/16 13:23 Hgb 12.1 g/dL (13.7-17.5) L 10/05/16 13:23 Hct 36.9 % (40.0-51.0) L 10/05/16 13:23 MCV 96.6 fL (81.5-99.8) 10/05/16 13:23 MCH 31.7 pg (27.9-34.1) 10/05/16 13:23 MCHC 32.8 g/dL (32.4-36.7) 10/05/16 13:23 RDW 14.0 % (11.5-15.2) 10/05/16 13:23 Plt Count 180 10^3/uL (150-400) 10/05/16 13:23 MPV 9.8 fL (8.7-11.7) 10/05/16 13:23 Neut % (Auto) 80.1 % (39.3-74.2) H 10/05/16 13:23 Lymph % (Auto) 10.8 % (15.0-45.0) L 10/05/16 13:23 [place] % (Auto) 8.3 % (4.5-13.0) 10/05/16 13:23 Eos % (Auto) 0.4 % (0.6-7.6) L 10/05/16 13:23 Baso % (Auto) 0.0 % (0.3-1.7) L 10/05/16 13:23 Nucleat RBC Rel Count 0.0 % (0.0-0.2) 10/05/16 13:23 Absolute Neuts (auto) 4.15 10^3/uL (1.70-6.50) 10/05/16 13:23 Absolute Lymphs (auto) 0.56 10^3/uL (1.00-3.00) L 10/05/16 13:23 Absolute Monos (auto) 0.43 10^3/uL (0.30-0.80) 10/05/16 13:23 Absolute Eos (auto) 0.02 10^3/uL (0.03-0.40) L 10/05/16 13:23 Absolute Basos (auto) 0.00 10^3/uL (0.02-0.10) L 10/05/16 13:23 Absolute Nucleated RBC 0.00 10^3/uL (0-0.01) 10/05/16 13:23 Immature Gran % 0.4 % (0.0-1.1) 10/05/16 13:23 Immature Gran # 0.02 10^3/uL (0.00-0.10) 10/05/16 13:23 PT 14.8 SEC (12.0-15.0) 10/05/16 13:23 INR 1.16 (0.83-1.16) 10/05/16 13:23 APTT 30.9 SEC (23.0-38.0) 10/05/16 13:23 VBG Lactic Acid 1.6 mmol/L (0.7-2.1) 10/05/16 13:30 Sodium 140 mEq/L (134-144) 10/05/16 13:20 Potassium 4.1 mEq/L (3.5-5.2) 10/05/16 13:20 Chloride 107 mEq/L (97-110) 10/05/16 13:20 Carbon Dioxide 24 mEq/l (22-31) 10/05/16 13:20 Anion Gap 9 mEq/L (8-16) 10/05/16 13:20 BUN 17 mg/dL (7-23) 10/05/16 13:20 Creatinine 0.5 mg/dL (0.7-1.3) L 10/05/16 13:20 Estimated GFR > 60 10/05/16 13:20 Glucose 123 mg/dL (70-100) H 10/05/16 13:20 Calcium 8.6 mg/dL (8.5-10.4) 10/05/16 13:20 Total Bilirubin 0.9 mg/dL (0.1-1.4) 10/05/16 13:20 Visualized and Interpreted Chest x-ray results: Yes Chest X-Ray results: normal heart size, infiltrate (rml/rll) Assessment & Plan Assessment: 76 y/o male with history of advanced Parkinson's Dementia presenting with #Acute encephalopathy most likely due to acute aspiration pneumonia versus urinary tract infection versus adverse drug effect from moxifloxacin #Suspected Aspiration Pneumonia #H/O advanced Parkinson's disease with dementia and dysphagia #normocytic anemia # history of BPH # history of urinary tract infections plan: - Continue ertapenem as recommended by Dr. Maycol Howard and monitor for signs of allergy given his history of penicillin allergy - will consider pulmonary consultation if his infiltrate is not improving to evaluate for bronchoscopy - speech therapy evaluation and will order a video swallow study - continue medications for BPH - send urine for analysis and culture is indicated patient requests to be full code status
[2016-10-05] MEDS ORDERED: ONDANSETRON 4 MG/2 ML VIAL IVP PRN (15:40)
[2016-10-05] MEDS ORDERED: ACETAMINOPHEN 325 MG TAB PO PRN (15:40)
[2016-10-05] MEDS ORDERED: DICLOFENAC SODIUM 75 MG TAB PO PRN (15:41)
[2016-10-05] MEDS ORDERED: ALBUTEROL 60 PUFFS/8 GM MDI IH PRN (15:41)
[2016-10-05] MEDS ORDERED: NON-FORMULARY NEW DRUG (Diclofenac Sodium [Voltaren Gel (*)] 1 APP) TP PRN (15:41)
[2016-10-05] MEDS ORDERED: METHOCARBAMOL 750 MG TAB PO PRN (15:41)
[2016-10-05] MEDS ORDERED: DICLOFENAC SODIUM TP PRN (15:51)
[2016-10-05] MEDS ORDERED: LEVODOPA MC SCH (16:00)
[2016-10-05] MEDS ORDERED: CARBIDOPA MC SCH (16:00)
[2016-10-05] MEDS: CARBIDOPA MC SCH ×2 (16:00→22:33)
[2016-10-05] MEDS: LEVODOPA MC SCH ×2 (16:00→22:33)
[2016-10-05 16:38] LABS: COLOR YELLOW; LEUKOCYTE ESTERASE,URINE NEGATIVE (NEGATIVE); NITRITE,URINE POSITIVE (NEGATIVE)
[2016-10-05 17:02] LABS: MUCUS TRACE /lpf (NONE-1+); WBC,URINE 15-25 /hpf (0-3)
--- NOTE | 2016-10-05 18:42 | PCMIDPN ---
Assessment/Plan: Assessment/Plan: * Right upper lobe pneumonia: Most likely represents aspiration pneumonia based on recent difficulties with swallowing and speech. Suspect confusion more likely related to underlying pneumonia then use of moxifloxacin as confusion onset was very rapid for drug effect. Video swallow and speech therapy evaluation have been ordered by Dr. Schulz. Continue ertapenem. Ultimately think could complete therapy with oral moxifloxacin provided shows clinical improvement and diagnostic evaluation completed. * Confusion: See above discussion. Do not think related to UTI as patient has not had any symptoms consistent with UTI which he has experienced in the past. Time spent, greater than 35 minutes, of which half was spent in education/ counseling/coordination of care related to probable aspiration pneumonia and plan of care. 10/05/16 18:32 10/05/16 18:46 Subjective: Patient well known to me from outpatient care for recurrent UTI with underlying Parkinson's disease. Received phone call from his PCP yesterday regarding chronic sinusitis and concern for aspiration pneumonia. Patient had been on prolonged clarithromycin for suppression of sinusitis which I recommended discontinuing. Based on concern for aspiration pneumonia, advised initiation of moxifloxacin orally which was started this a.m.. Patient was noted to have confusion this a.m. which started shortly after initiation of moxifloxacin. No associated fever or chills. Has experience cough for 4 days with thick, white sputum. No pleuritic chest pain. Chest x-ray yesterday showed probable early right upper lobe pneumonia and chest x-ray today shows worsening consistent with right upper lobe pneumonia. He has been seeing speech therapy with concerns about his speech patterns from Parkinson's disease and recently aspiration was raised as an additional concern. No notable symptoms of dysuria , urgency, frequency, abdominal or flank pain. I am now asked to assist in his ongoing management. Penicillin allergy as child with unclear reaction but has tolerated cephalosporins in the past. Objective: Vital Signs Temp Pulse Resp BP Pulse Ox 36.9 C 82 20 96/64 L 92 10/05/16 15:05 10/05/16 15:05 10/05/16 15:05 10/05/16 15:05 10/05/16 15:05 10/04/16 10/05/16 10/06/16 05:59 05:59 05:59 Intake Total 1150 Output Total 300 Balance 850 Chest x-ray with right upper lobe infiltrate Laboratory Tests 10/05/16 10/05/16 13:20 13:23 WBC 5.18 Hct 36.9 L Plt Count 180 Neut % (Auto) 80.1 H Creatinine 0.5 L - Physical Exam General Appearance: alert, no apparent distress EENT: No scleral icterus, No conjunctival petechiae Respiratory: lungs clear, No respiratory distress Cardiac/Chest: regular rate, rhythm Extremities: No inflammation Abdomen: non-tender, No distended Skin: No embolic lesions ICD10 Worksheet Patient Problems: Problems Problem Status Onset Aspiration pneumonia Acute Chest pain Acute Weakness generalized Acute
[2016-10-05] MEDS ORDERED: NON-FORMULARY NEW DRUG (Omeprazole [Omeprazole] 40 MG) PO SCH (21:00)
[2016-10-05] MEDS ORDERED: NON-FORMULARY NEW DRUG (Mirabegron [Myrbetriq] 25 MG) PO SCH (21:00)
[2016-10-05] MEDS ORDERED: DARIFENACIN HYDROBROMIDE 15 MG PO SCH (21:00)
[2016-10-05] MEDS ORDERED: BUDESONIDE/FORMOTEROL 80/4.5 60 PUFFS/MDI IH SCH (21:00)
[2016-10-05] MEDS: PANTOPRAZOLE SODIUM 40 MG TAB PO SCH (22:17)
[2016-10-05] MEDS: ASPIRIN 81 MG CHEWABLE TAB PO SCH (22:17)
[2016-10-05] MEDS: QUEtiapine FUMARATE 25 MG TAB PO SCH (22:17)
[2016-10-05] MEDS: cloZAPine 25 MG TAB PO SCH (22:18)
[2016-10-05] MEDS: DARIFENACIN HYDROBROMIDE 15 MG PO SCH (22:23)
[2016-10-05] MEDS: (Mirabegron [Myrbetriq] 25 MG) PO SCH (22:23)
[2016-10-05] MEDS: BUDESONIDE/FORMOTEROL 160/4.5 60 PUFFS/MDI IH SCH (22:24)
[2016-10-06 05:01] LABS: % IMMATURE GRANULYOCYTES 0.2 % (0.0-1.1); ABSOLUTE IMMATURE GRANULOCYTES 0.01 10^3/uL (0.00-0.10); ADD DIFF? NO; ADD MORPH? NO; ADD SCAN? NO; ATYPICAL LYMPHOCYTE FLAG 0 (0-99); FRAGMENT RBC FLAG 0 (0-99); HEMATOCRIT 34.3 % (40.0-51.0); HEMOGLOBIN 11.2 g/dL (13.7-17.5); LEFT SHIFT FLG 0 (0-99); LIPEMIA HEMOLYSIS FLAG 80 (0-99); MEAN CELL HEMOGLOBIN 31.7 pg (27.9-34.1); MEAN CELL HEMOGLOBIN CONCENTR. 32.7 g/dL (32.4-36.7); MEAN CELL VOLUME 97.2 fL (81.5-99.8); MEAN PLATELET VOLUME 9.6 fL (8.7-11.7); PLATELET CLUMPS FLAG 0 (0-99); PLATELET COUNT 162 10^3/uL (150-400); RED BLOOD CELL COUNT 3.53 10^6/uL (4.40-6.38)
[2016-10-06 05:16] LABS: ALANINE AMINOTRANSFERASE 17 IU/L (21-72); ALBUMIN 2.9 g/dL (3.5-5.0); ALKALINE PHOSPHATASE 65 IU/L (38-126); ANION GAP 6 mEq/L (8-16); ASPARTATE AMINOTRANSFERASE 12 IU/L (17-59); BILIRUBIN,TOTAL 0.8 mg/dL (0.1-1.4); CALCIUM 8.3 mg/dL (8.5-10.4); CARBON DIOXIDE 27 mEq/l (22-31); CHLORIDE 106 mEq/L (97-110); CREATININE 0.5 mg/dL (0.7-1.3); GLOMERULAR FILTRATION RATE > 60; GLUCOSE 88 mg/dL (70-100); POTASSIUM 3.9 mEq/L (3.5-5.2); SODIUM 139 mEq/L (134-144); TOTAL PROTEIN 5.5 g/dL (6.3-8.2)
[2016-10-06] MEDS: CARBIDOPA MC SCH ×3 (07:06→22:28)
[2016-10-06] MEDS: LEVODOPA MC SCH ×3 (07:06→22:28)
[2016-10-06] MEDS: CYANO/VITAMIN B12 100 MCG TAB PO SCH (09:48)
[2016-10-06] MEDS: CHOLECALCIFEROL VIT D3 1,000 UNITS TAB PO SCH (09:50)
[2016-10-06] MEDS: PANTOPRAZOLE SODIUM 40 MG TAB PO SCH ×2 (09:50→21:11)
[2016-10-06] MEDS: TAMSULOSIN HCL 0.4 MG CAP PO SCH (09:50)
[2016-10-06] MEDS: FINASTERIDE 5 MG TAB PO SCH (09:50)
[2016-10-06] MEDS: FOLIC ACID 1 MG TAB PO SCH (09:50)
[2016-10-06] MEDS: ENOXAPARIN 40 MG/0.4 ML SYR SC SCH (09:51)
[2016-10-06] MEDS: ERTAPENEM 1 GM in NS 100 ML IV SCH (09:51)
--- NOTE | 2016-10-06 10:07 | HOSPPROG ---
Hospitalist Progress Note Assessment/Plan: 76 y/o male with history of advanced Parkinson's Dementia presenting with #Acute encephalopathy (improving) most likely due to acute aspiration pneumonia versus less likely urinary tract infection versus adverse drug effect from moxifloxacin #Suspected Aspiration Pneumonia #H/O advanced Parkinson's disease with dementia and dysphagia #normocytic anemia # history of BPH # history of urinary tract infections with pyurea on UA (suspect colonization doubt acute uti) plan: - Continue ertapenem Day #[address] Maycol Howard and monitor for signs of allergy given his history of penicillin allergy - Consider pulmonary consultation if his infiltrate is not improving to evaluate for bronchoscopy - video swallow study study - continue medications for BPH dispo: continue IV abx for now and plan to DC on Avelox patient requests to be full code status Subjective: improved confusion per . overall feels better. reports persistent cough with yellow sputum. denies obvious aspiration events while in the hospital Objective: Vital Signs Temp Pulse Resp BP Pulse Ox 36.8 C 70 18 119/69 91 L 10/06/16 07:45 10/06/16 07:45 10/06/16 07:45 10/06/16 07:45 10/06/16 07:45 Laboratory Results 10/06/16 04:35 10/06/16 04:35 10/05/16 10/06/16 10/07/16 05:59 05:59 05:59 Intake Total 1450 Output Total 700 Balance 750 PT 14.8 SEC (12.0-15.0) 10/05/16 13:23 INR 1.16 (0.83-1.16) 10/05/16 13:23 Laboratory Tests 10/05/16 16:00 Urine Ketones 1+ H Urine Nitrate POSITIVE H Urine RBC 3-5 H Urine WBC 15-25 H - Physical Exam Constitutional: no apparent distress, appears nourished, not in pain Cardiovascular: regular rate and rhythym, no murmur, rub, or gallop Respiratory: no respiratory distress, no rales or rhonchi, clear to auscultation (mildly reduced in the right upper lobe) Gastrointestinal: normoactive bowel sounds, soft, non-tender abdomen, no palpable masses, other (medication pump site without signs of infection), No guarding, No rebound ICD10 Worksheet Patient Problems: Problems Problem Status Onset Chest pain Acute Weakness generalized Acute Aspiration pneumonia Acute
[2016-10-06] MEDS: BUDESONIDE/FORMOTEROL 160/4.5 60 PUFFS/MDI IH SCH ×2 (10:12→20:03)
--- NOTE | 2016-10-06 10:32 | PCMIDPN ---
Assessment/Plan: 1. Aspiration pneumonia in patient with underlying Parkinson's: Clinically improving, with less cough and no longer oxygen requiring. Video swallow today. Suspect he may be able to go tomorrow on oral moxifloxacin. Continue ertapenem while in-house. Subjective: Patient states that his cough is improved. He is no longer on oxygen. No diarrhea or constipation. Having a video swallow eval today. reports that he is less confused today. Objective: Ertapenem 1 g IV daily day 2. Afebrile 91% on room air Vital Signs Temp Pulse Resp BP Pulse Ox 36.8 C 70 18 119/69 91 L 10/06/16 07:45 10/06/16 07:45 10/06/16 07:45 10/06/16 07:45 10/06/16 07:45 Laboratory Results 10/06/16 04:35 10/06/16 04:35 10/05/16 10/06/16 10/07/16 05:59 05:59 05:59 Intake Total 1450 Output Total 700 Balance 750 October 05 blood cultures x2 are pending - Physical Exam General Appearance: alert, no apparent distress EENT: pharynx normal, No thrush Respiratory: lungs clear Cardiac/Chest: regular rate, rhythm, No systolic murmur Abdomen: non-tender, soft, other (Peg tube in place.) Skin: No rash ICD10 Worksheet Patient Problems: Problems Problem Status Onset Aspiration pneumonia Acute Chest pain Acute Weakness generalized Acute
[2016-10-06] MEDS: FLUTICASONE NASAL 120 SPRAYS/16 GM MDI EACHNARE SCH (20:02)
[2016-10-06] MEDS: ASPIRIN 81 MG CHEWABLE TAB PO SCH (21:10)
[2016-10-06] MEDS: cloZAPine 25 MG TAB PO SCH (21:11)
[2016-10-06] MEDS: QUEtiapine FUMARATE 25 MG TAB PO SCH (21:11)
[2016-10-06] MEDS: DARIFENACIN HYDROBROMIDE 15 MG PO SCH (22:27)
[2016-10-06] MEDS: (Mirabegron [Myrbetriq] 25 MG) PO SCH (22:28)
[2016-10-07] MEDS: LEVODOPA MC SCH ×3 (07:08→23:45)
[2016-10-07] MEDS: CARBIDOPA MC SCH ×3 (07:08→23:45)
[2016-10-07] MEDS: ERTAPENEM 1 GM in NS 100 ML IV SCH (07:48)
[2016-10-07] MEDS: ENOXAPARIN 40 MG/0.4 ML SYR SC SCH (07:50)
[2016-10-07] MEDS: PANTOPRAZOLE SODIUM 40 MG TAB PO SCH ×2 (07:53→21:00)
[2016-10-07] MEDS: CHOLECALCIFEROL VIT D3 1,000 UNITS TAB PO SCH (07:53)
[2016-10-07] MEDS: FOLIC ACID 1 MG TAB PO SCH (07:55)
[2016-10-07] MEDS: TAMSULOSIN HCL 0.4 MG CAP PO SCH (07:55)
[2016-10-07] MEDS: FINASTERIDE 5 MG TAB PO SCH (07:56)
[2016-10-07] MEDS: FLUTICASONE NASAL 120 SPRAYS/16 GM MDI EACHNARE SCH (08:14)
[2016-10-07] MEDS: CYANO/VITAMIN B12 100 MCG TAB PO SCH (08:15)
[2016-10-07] MEDS: BUDESONIDE/FORMOTEROL 80/4.5 60 PUFFS/MDI IH SCH ×2 (11:21→20:30)
[2016-10-07] MEDS: BUDESONIDE/FORMOTEROL 160/4.5 60 PUFFS/MDI IH SCH (11:23)
[2016-10-07] MEDS: ACETAMINOPHEN 500 MG TAB PO PRN (13:23)
--- NOTE | 2016-10-07 17:08 | PCMIDPN ---
Assessment/Plan: Assessment/Plan: 1. Aspiration Pneumonia: - ON invanz at present. - Clinically improving. -blood cx ngtd -Transition to [facility] when ready for discharge per hospitalist team. Pt already has this at home per . - Meds invanz Subjective: Afebrile. Feels better than this morning. Per , did stumble a bit when walking with PT this morning. Breathing is better. On thickened liquids now. Denies abd pain or diarrhea. Objective: Vital Signs Temp Pulse Resp BP Pulse Ox 36.4 C 82 14 107/60 92 10/07/16 15:22 10/07/16 15:22 10/07/16 15:22 10/07/16 15:22 10/07/16 15:22 Laboratory Results 10/06/16 04:35 10/06/16 04:35 10/06/16 10/07/16 10/08/16 05:59 05:59 05:59 Intake Total 1450 100 Output Total 700 1100 Balance 750 -1000 - Physical Exam General Appearance: alert, no apparent distress Respiratory: coarse breath sounds (on right) Cardiac/Chest: regular rate, rhythm Extremities: No swelling Abdomen: normal bowel sounds, non-tender, soft, No distended Skin: No erythema ICD10 Worksheet Patient Problems: Problems Problem Status Onset Aspiration pneumonia Acute Chest pain Acute Weakness generalized Acute
--- NOTE | 2016-10-07 17:31 | HOSPPROG ---
Hospitalist Progress Note Assessment/Plan: DIAGNOSES: #Acute encephalopathy (improving) most likely due to acute aspiration pneumonia versus less likely urinary tract infection versus adverse drug effect from moxifloxacin #Suspected Aspiration Pneumonia #H/O advanced Parkinson's disease with dementia and dysphagia #normocytic anemia # history of BPH # history of urinary tract infections with pyurea on UA (suspect colonization doubt acute uti) He is improving but he is not back to his baseline ambulation and he was somewhat unsteady on his feet and requires assistance and a walker today. His fall risk is certainly higher than we should have for him to go home at this point. Today he is fairly somnolent and falls asleep several times during my visit with him, though he reportedly slept well last night. PLANS: -Continue current antibiotics -Continue physical occupational therapy -If he does not regain better balance and strength he may potentially need inpatient rehab or sniff stay. His is somewhat reluctant about this as she has a difficult experience at another center. SUBJECTIVE: He has no new discomfort or dyspnea. No chills or sweats OBJECTIVE Vitals reviewed:Stable without fever Exam: quite somnolent falls asleep repeatedly during my visit with him. He is arousable and states he feels comfortable skin warm dry color ok relaxed resps not labored lungs clear BSs heart regular abd soft nondistended nontender, bowel sounds present limbs warm, no edema iv site ok Objective: Vital Signs Temp Pulse Resp BP Pulse Ox 36.4 C 82 14 107/60 92 10/07/16 15:22 10/07/16 15:22 10/07/16 15:22 10/07/16 15:22 10/07/16 15:22 Laboratory Results 10/06/16 04:35 10/06/16 04:35 10/06/16 10/07/16 10/08/16 06:59 06:59 06:59 Intake Total 1450 100 Output Total 700 1100 Balance 750 -1000 PT 14.8 SEC (12.0-15.0) 10/05/16 13:23 INR 1.16 (0.83-1.16) 10/05/16 13:23 ICD10 Worksheet Patient Problems: Problems Problem Status Onset Aspiration pneumonia Acute Chest pain Acute Weakness generalized Acute
[2016-10-07] MEDS ORDERED: LEVALBUTEROL 1.25 MG/3 ML DEYVIAL ONE (20:37)
[2016-10-07] MEDS: QUEtiapine FUMARATE 25 MG TAB PO SCH (21:00)
[2016-10-07] MEDS: ASPIRIN 81 MG CHEWABLE TAB PO SCH (21:00)
[2016-10-07] MEDS: cloZAPine 25 MG TAB PO SCH (21:01)
[2016-10-07] MEDS: DARIFENACIN HYDROBROMIDE 15 MG PO SCH (21:18)
[2016-10-07] MEDS: (Mirabegron [Myrbetriq] 25 MG) PO SCH (21:19)
[2016-10-07 21:54] VITALS: RESP 16
[2016-10-08 04:59] LABS: ANION GAP 8 mEq/L (8-16); CALCIUM 8.3 mg/dL (8.5-10.4); CARBON DIOXIDE 27 mEq/l (22-31); CHLORIDE 105 mEq/L (97-110); CREATININE 0.5 mg/dL (0.7-1.3); GLOMERULAR FILTRATION RATE > 60; GLUCOSE 83 mg/dL (70-100); POTASSIUM 3.8 mEq/L (3.5-5.2); SODIUM 140 mEq/L (134-144)
[2016-10-08] MEDS: CARBIDOPA MC SCH (06:26)
[2016-10-08] MEDS: LEVODOPA MC SCH (06:26)
[2016-10-08 08:44] VITALS: BP 106/70; TEMP 97.9
[2016-10-08] MEDS: CYANO/VITAMIN B12 100 MCG TAB PO SCH (09:00)
[2016-10-08] MEDS: TAMSULOSIN HCL 0.4 MG CAP PO SCH (09:00)
[2016-10-08] MEDS: CHOLECALCIFEROL VIT D3 1,000 UNITS TAB PO SCH (09:01)
[2016-10-08] MEDS: FINASTERIDE 5 MG TAB PO SCH (09:01)
[2016-10-08] MEDS: ENOXAPARIN 40 MG/0.4 ML SYR SC SCH (09:10)
[2016-10-08] MEDS: ERTAPENEM 1 GM in NS 100 ML IV SCH (09:11)
[2016-10-08] MEDS: FLUTICASONE NASAL 120 SPRAYS/16 GM MDI EACHNARE SCH (09:21)
[2016-10-08] MEDS: FOLIC ACID 1 MG TAB PO SCH (09:21)
[2016-10-08] MEDS: PANTOPRAZOLE SODIUM 40 MG TAB PO SCH (09:21)
[2016-10-08] MEDS: BUDESONIDE/FORMOTEROL 80/4.5 60 PUFFS/MDI IH SCH (10:02)
[2016-10-08 10:19] VITALS: PULSE 84; O2SAT 90
[2016-10-08] MEDS: ACETAMINOPHEN 500 MG TAB PO PRN (11:52)
--- NOTE | 2016-10-08 17:52 | PDDCSUM ---
Discharge Summary Discharge Summary: DISCHARGE DIAGNOSES: #Suspected Aspiration Pneumonia # acute respiratory failure #Acute encephalopathy resolved #H/O advanced Parkinson's disease with dementia and dysphagia and gait instability #normocytic anemia # history of BPH # pyurea on UA (suspect colonization doubt acute uti) with past history of urinary tract infections HOSPITAL COURSE SUMMARY: This patient with advanced Parkinson's disease fairly debilitated chronically is cared for at home by his . He was brought here because of weakness worsening with gait instability and acute confusion. He is found have evidence of pneumonia that appeared likely acute aspiration pneumonia. He did have a swallowing study and he was able to swallow safely with cues and altered mechanics. He did not appear to have any further aspirations here. He was treated for his pneumonia and had significant improvement in his respiratory status back to baseline good resolution of pneumonia. The major issue in terms of getting him home was gait stability. This did gradually return to very close to his baseline. He is both impulsive and unsteady on his feet but he does walk well enough with a walker and is quite strong to get him home. 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 I had a long discussion with her about options for helping to manage this at home. At the time of discharge he is eating well, not short of breath, having no pain. He has normal vital signs good oxygenation on room air and a clear lung exam. He is quite strong and actually does quite well on my exam with the walker PENDING TEST RESULTS: None MEDICATION CHANGES: Addition of clindamycin 3 times daily for 3 days FOLLOW-UP PLAN: With his primary care physician in 1-2 weeks Greater than 35 minutes bedside and care coordination time today
[2016-10-08] MEDS ORDERED: SOLIFENACIN SUCCINATE 5 MG TAB PO SCH (21:00)
== END 2016-10-08 15:17 | disposition home or self-care (01) | DRG 177 ==
LOC: F3E 14:44
PROVIDERS: ADMIT Internal Medicine; ATTEND Internal Medicine
DX: J69.0 Pneumonitis due to inhalation of food and vomit (principal); J96.00 Acute respiratory failure, unspecified whether with hypoxia or hypercapnia; N39.0 Urinary tract infection, site not specified; G93.40 Encephalopathy, unspecified; G31.83 Neurocognitive disorder with Lewy bodies; F02.80 Dementia in other diseases classified elsewhere, unspecified severity, without behavioral disturbance, psychotic disturbance, mood disturbance, and anxiety; R13.10 Dysphagia, unspecified; R26.9 Unspecified abnormalities of gait and mobility; E78.5 Hyperlipidemia, unspecified; I25.10 Atherosclerotic heart disease of native coronary artery without angina pectoris; Z95.5 Presence of coronary angioplasty implant and graft
CPT/HCPCS: 92526-GN; 92610-GN; 92611-GN; 96365; 97116-GP; 97161-GP; 97166-GO; 97530-GO; 97530-GP; G8978-GP-CJ; G8979-GP-CI; G8987-GO-CK; G8988-GO-CJ; G8996-GN-CJ; G8997-GN-CI; J1335; J1650

== ENCOUNTER 2016-10-13 22:12 | Emergency (ER) | payer OTHER ==
[2016-10-13] MEDS ORDERED: NS 500 ML IV ONE (22:35)
[2016-10-13 22:40] VITALS: PULSE 74; RESP 16; TEMP 97.9
[2016-10-13 22:43] LABS: % IMMATURE GRANULYOCYTES 0.5 % (0.0-1.1); ABSOLUTE IMMATURE GRANULOCYTES 0.04 10^3/uL (0.00-0.10); ADD DIFF? NO; ADD MORPH? NO; ADD SCAN? NO; ATYPICAL LYMPHOCYTE FLAG 10 (0-99); FRAGMENT RBC FLAG 0 (0-99); HEMATOCRIT 38.2 % (40.0-51.0); HEMOGLOBIN 12.4 g/dL (13.7-17.5); LEFT SHIFT FLG 0 (0-99); LIPEMIA HEMOLYSIS FLAG 80 (0-99); MEAN CELL HEMOGLOBIN CONCENTR. 32.5 g/dL (32.4-36.7); MEAN CELL VOLUME 95.5 fL (81.5-99.8); PLATELET CLUMPS FLAG 0 (0-99); PLATELET COUNT 302 10^3/uL (150-400); RED CELL DISTRIBUTION WIDTH 13.2 % (11.5-15.2)
[2016-10-13 22:54] LABS: ANION GAP 10 mEq/L (8-16); CALCIUM 8.7 mg/dL (8.5-10.4); CARBON DIOXIDE 27 mEq/l (22-31); CHLORIDE 109 mEq/L (97-110); CREATININE 0.6 mg/dL (0.7-1.3); GLOMERULAR FILTRATION RATE > 60; GLUCOSE 89 mg/dL (70-100); POTASSIUM 2.8 mEq/L (3.5-5.2); SODIUM 146 mEq/L (134-144)
--- NOTE | 2016-10-13 22:56 | EDPHY ---
H & P Stated Complaint: recent PNA-tachypnea SOB Time Seen by Provider: 10/13/16 22:16 HPI/ROS: HPI The patient presents with shortness of breath which began today, he had a total of 3 episodes which occurred both at rest and with mild activity. During these episodes he was breathing shallowly and did not appear well according to his . Each time she lied him down in bed and his symptoms improved except for the 3rd time that it happened. He was unable to catch his breath. Paramedics were called and 1st responders report an initial oxygen saturation of 71% on room air. He was given a nebulizer treatment. When paramedics arrived his oxygen saturations were in the 90s and remained this way. [place] lives [place] [address] and his symptoms improved as he drove to [place] in the ambulance. He is supposed to be on home oxygen, however he has not been using it. His tried to administer an inhaler tonight, but was unable to give it. He is not using his CPAP machine either. The patient was admitted to the hospital from October 05 - for aspiration pneumonia. He was discharged on clindamycin. His said that when he left the hospital his respiratory status was improved, he does continue to have a mild productive cough. He was initially disoriented on his 1st few days home, however now this has improved. REVIEW OF SYSTEMS Constitutional: No fever, no chills. Eyes: No discharge. ENT: No sore throat. Cardiovascular: No chest pain, no palpitations. Respiratory: See HPI Gastrointestinal: No abdominal pain, no vomiting. Genitourinary: No hematuria. Musculoskeletal: No back pain. Skin: No rashes. Neurological: No headache. PMHx: Recent admission for aspiration pneumonia with respiratory distress, advanced Parkinson's disease Soc Hx: Lives [place] [address] with his who provides his care PHYSICAL General Appearance: Alert, no distress Eyes: Pupils equal and round no pallor or injection ENT, Mouth: Mucous membranes moist Respiratory: There are no retractions, lungs are clear to auscultation Cardiovascular: Regular rate and rhythm Gastrointestinal: Abdomen is soft and non-tender, no masses, bowel sounds normal Neurological: A&O, moves all extremities Skin: Warm and dry, no rashes Musculoskeletal: Neck is supple non tender Extremities: symmetrical, full range of motion Psychiatric: Patient is oriented X 3, there is no agitation Source: Patient, Family, EMS Exam Limitations: No limitations - Personal History Current Tetanus Diphtheria and Acellular Pertussis (TDAP): Yes Tetanus Vaccine Date: < 10 YEARS - Medical/Surgical History Hx Asthma: No Hx Chronic Respiratory Disease: No Hx Diabetes: No Hx Cardiac Disease: Yes Hx Renal Disease: No Hx Cirrhosis: No Hx Alcoholism: No Hx HIV/AIDS: No Hx Splenectomy or Spleen Trauma: No Other PMH: Parkinson's, back surgery, Cardiac stent 2010, CAD, ELVIRA, BPH, L shoulder laparascopic rotator cuff repair 04/30/2014, L hip fx after fall 05/03 - Social History Smoking Status: Former smoker Constitutional: Initial Vital Signs Temperature (C) 36.6 C 10/13/16 22:13 Heart Rate 74 10/13/16 22:13 Respiratory Rate 16 10/13/16 22:13 Blood Pressure 151/123 H 10/13/16 22:13 O2 Sat (%) 94 10/13/16 22:13 O2 Delivery Mode Room Air O2 (L/minute) 2 Allergies/Adverse Reactions: meperidine HCl [From Demerol] Allergy (Severe, Verified 10/13/16 22:28) Hypotension Penicillins Allergy (Severe, Verified 10/13/16 22:28) Rash/HIVES secobarbital sodium [From [place]] Allergy (Severe, Verified 10/13/16 22:28) Hypotension daptomycin Allergy (Intermediate, Verified 10/13/16 22:28) Rash lorazepam [From Ativan] Allergy (Mild, Verified 10/13/16 22:28) paridoxal effect nitrofurantoin [Nitrofurantoin] Allergy (Verified 10/13/16 22:28) prochlorperazine [From Compazine] Allergy (Verified 10/13/16 22:28) promethazine HCl [From Phenergan] Allergy (Verified 10/13/16 22:28) Home Medications: Medication Instructions Recorded Albuterol [Proventil Inhaler HFA 2 puffs IH DAILY PRN 05/01/14 (*)] Cholecalciferol Vit D3 [Vitamin D3 1,000 units PO DAILY 05/01/14 (*)] Darifenacin Hydrobromide [Enablex] 15 mg PO HS 05/01/14 Diclofenac Sodium [Voltaren Gel 1 beatriz TP BID PRN 05/01/14 (*)] Finasteride [Proscar 5 MG (*)] 5 mg PO DAILY 05/01/14 Fluticasone Nasal [Flonase Nasal 1 sprays NASAL DAILY 05/01/14 [place]] Omeprazole 40 mg PO BID 05/01/14 QUEtiapine FUMARATE [Seroquel 25 62.5 mg PO HS 05/01/14 mg (*)] Tamsulosin HCl [Flomax 0.4 MG (*)] 0.4 mg PO DAILY 05/01/14 cloZAPine [Clozaril (*)] 75 mg PO HS 11/05/14 Acetaminophen [Tylenol ES 500 mg 500 mg PO DAILY PRN 07/05/16 (*)] Aspirin [Aspirin 81mg (*)] 162 mg PO HS 07/05/16 Carbidopa/Levodopa [Duopa 4.63 0 ml MC TID 07/05/16 mg-20 mg/ml Suspens] Cyanocobalamin [Vitamin B12 (*)] 500 mcg PO DAILY 07/05/16 Folic Acid [Folic Acid 1 MG (*)] 800 mcg PO DAILY 07/05/16 Glucosamine Sulfate [Glucosamine 500 mg PO DAILY 07/05/16 Sulfate 500 MG (*)] Herbals/Supplements -Info Only 1 ea PO DAILY 07/05/16 Mirabegron [Myrbetriq] 25 mg PO HS 07/05/16 Budesonide/Formoterol 160/4.5 2 puffs IH BID 10/05/16 [Symbicort 160-4.5 Mcg Inh (*)] Diclofenac Sodium [Voltaren 75 MG 75 mg PO DAILY PRN 10/05/16 (*)] Methocarbamol [Robaxin 750 mg (*)] 750 mg PO DAILY PRN 10/05/16 Clindamycin 150 mg PO Q8 #10 cap 10/08/16 Potassium Chloride 40 meq PO DAILY #75 ml 10/14/16 Medical Decision Making - Diagnostics Imaging Results: Imaging Impressions Chest X-Ray 10/13/16 22:35 Impression: Improved right-sided infiltrate. Nothing new. Imaging: I viewed and interpreted images myself Differential Diagnosis: This is a 76-year-old man with recent admission for aspiration pneumonia, history of Parkinson's disease who presents from home brought in by ambulance for 3 episodes of shortness of breath today. Paramedics initially found him hypoxic, however here on room air his sats were in the mid 90s, at his baseline. He does not have any chest pain or leg swelling with this. He feels well now without any symptoms. Differential diagnosis includes aspiration pneumonia, influenza, less likely COPD or asthma. Doubt pulmonary embolism given no chest pain, no leg swelling, no current hypoxia. In the emergency room, the patient was given a fluid bolus for volume depletion. Labs were checked and did reveal hypokalemia. This is not usual side-effect of clindamycin; this is only new medication. He has not had any vomiting or diarrhea. He has had a poor diet since he has been home, however this is improving. I did consider adrenal insufficiency given his elevated sodium, however he does not have any hypotension. I feel this is likely related to his diet. He was given supplemental potassium and repeat level was 3.2. I will put him on a short course of potassium supplementation. The cause of his shortness of breath is likely related to his current aspiration pneumonia. Chest x-ray does show that is improving. D-dimer is slightly elevated but with age adjustment is normal. His Wells score is low probability for PE. Because he lives at high [place], I feel this may be causing some of his symptoms and slow recovery. During his entire time here, he was on room air with no desaturations. He was observed for about 3 hours. I have offered him and his was at the bedside admission to the hospital, however they declined and would like to go home. The patient's is concerned about disorientation he experienced while in the hospital and in the days after his discharge which is now beginning to improve. This is likely a result of his Parkinson's disease, and I feel her reasoning is quite rational. We had a long discussion about the necessity for him to be wearing supplemental oxygen. She has a pulse oximeter at home to check his values and I have encouraged her to do this. I have also encouraged breathing treatments with albuterol as needed using a spacer. He will be discharged home and I have asked them to follow up for a repeat potassium drawn in the next 1 week.. - Data Points Laboratory Results: Laboratory Results 10/13/16 22:28 10/14/16 00:15 10/14/16 10/13/16 10/13/16 00:15 22:30 22:30 WBC RBC Hgb Hct MCV MCH MCHC RDW Plt Count MPV Neut % (Auto) Lymph % (Auto) [place] % (Auto) Eos % (Auto) Baso % (Auto) Nucleat RBC Rel Count Absolute Neuts (auto) Absolute Lymphs (auto) Absolute Monos (auto) Absolute Eos (auto) Absolute Basos (auto) Absolute Nucleated RBC Immature Gran % Immature Gran # D-Dimer Sodium 147 mEq/L H mEq/L (134-144) Potassium 3.2 mEq/L L mEq/L (3.5-5.2) Chloride 111 mEq/L H mEq/L (97-110) Carbon Dioxide 25 mEq/l mEq/l (22-31) Anion Gap 11 mEq/L mEq/L (8-16) BUN 16 mg/dL mg/dL (7-23) Creatinine 0.6 mg/dL L mg/dL (0.7-1.3) Estimated GFR > 60 Glucose 94 mg/dL mg/dL (70-100) Calcium 8.4 mg/dL L mg/dL (8.5-10.4) Influenza Typ A,B (DFA) NEGATIVE FOR FLU (NEGATIVE) Influenza A & B (PCR) Cancelled 10/13/16 10/13/16 10/13/16 22:28 22:28 22:28 WBC 7.50 10^3/uL 10^3/uL (3.80-9.50) RBC 4.00 10^6/uL L 10^6/uL (4.40-6.38) Hgb 12.4 g/dL L g/dL (13.7-17.5) Hct 38.2 % L % (40.0-51.0) MCV 95.5 fL fL (81.5-99.8) MCH 31.0 pg pg (27.9-34.1) MCHC 32.5 g/dL g/dL (32.4-36.7) RDW 13.2 % % (11.5-15.2) Plt Count 302 10^3/uL 10^3/uL (150-400) MPV 9.0 fL fL (8.7-11.7) Neut % (Auto) 76.2 % H % (39.3-74.2) Lymph % (Auto) 15.5 % % (15.0-45.0) [place] % (Auto) 6.1 % % (4.5-13.0) Eos % (Auto) 1.6 % % (0.6-7.6) Baso % (Auto) 0.1 % L % (0.3-1.7) Nucleat RBC Rel Count 0.0 % % (0.0-0.2) Absolute Neuts (auto) 5.71 10^3/uL 10^3/uL (1.70-6.50) Absolute Lymphs (auto) 1.16 10^3/uL 10^3/uL (1.00-3.00) Absolute Monos (auto) 0.46 10^3/uL 10^3/uL (0.30-0.80) Absolute Eos (auto) 0.12 10^3/uL 10^3/uL (0.03-0.40) Absolute Basos (auto) 0.01 10^3/uL L 10^3/uL (0.02-0.10) Absolute Nucleated RBC 0.00 10^3/uL 10^3/uL (0-0.01) Immature Gran % 0.5 % % (0.0-1.1) Immature Gran # 0.04 10^3/uL 10^3/uL (0.00-0.10) D-Dimer 0.65 ug/mLFEU H ug/mLFEU (0.00-0.50) Sodium 146 mEq/L H mEq/L (134-144) Potassium 2.8 mEq/L L mEq/L (3.5-5.2) Chloride 109 mEq/L mEq/L (97-110) Carbon Dioxide 27 mEq/l mEq/l (22-31) Anion Gap 10 mEq/L mEq/L (8-16) BUN 16 mg/dL mg/dL (7-23) Creatinine 0.6 mg/dL L mg/dL (0.7-1.3) Estimated GFR > 60 Glucose 89 mg/dL mg/dL (70-100) Calcium 8.7 mg/dL mg/dL (8.5-10.4) Influenza Typ A,B (DFA) Influenza A & B (PCR) Medications Given: Discontinued Medications Sodium Chloride (Ns) 500 mls @ 0 mls/hr IV ONCE ONE PRN Reason: As Directed Stop: 04/28/17 22:36 Last Admin: 10/13/16 22:45 Dose: 500 mls Potassium Chloride (Potassium Cl 10 Meq (Premix)) 100 mls @ 100 mls/hr IV EDNOW ONE Stop: 10/14/16 00:06 Last Admin: 10/13/16 23:10 Dose: 100 mls Potassium Chloride (Klor-Con) 40 meq PO EDNOW ONE Stop: 10/13/16 23:31 Last Admin: 10/13/16 23:31 Dose: 40 meq Departure - Departure Disposition: Home, Routine, Self-Care Clinical Impression: Hypokalemia Pneumonia Qualifiers: Pneumonia type: aspiration pneumonia Aspiration pneumonia type: unspecified Laterality: right Lung location: upper lobe of lung Qualified Code(s): J69.0 - Pneumonitis due to inhalation of food and vomit Condition: Good Instructions: Hypokalemia (ED), Pneumonia (ED) Additional Instructions: Please make sure to take your antibiotics. You should use the supplemental oxygen if your feeling short of breath. You should also use the spacer to take your breathing treatments. You will need to have your potassium rechecked in the next 5 days. Please contact her primary care doctor about this. Referrals: Julius Francois MD [Primary Care Provider] - As per Instructions Prescriptions: Potassium Chloride 40 meq PO DAILY #75 ml
[2016-10-13] MEDS ORDERED: POTASSIUM Cl (KCl) 100 ML IV ONE (23:07)
[2016-10-13] MEDS ORDERED: POTASSIUM CL 20 MEQ/15 ML UDCUP PO ONE (23:07)
[2016-10-13] MEDS ORDERED: POTASSIUM CL 20 MEQ TAB ONE (23:21)
[2016-10-13] MEDS ORDERED: POTASSIUM CL 10 MEQ TAB PO ONE (23:30)
[2016-10-14 00:34] LABS: ANION GAP 11 mEq/L (8-16); CALCIUM 8.4 mg/dL (8.5-10.4); CARBON DIOXIDE 25 mEq/l (22-31); CHLORIDE 111 mEq/L (97-110); CREATININE 0.6 mg/dL (0.7-1.3); GLOMERULAR FILTRATION RATE > 60; GLUCOSE 94 mg/dL (70-100); POTASSIUM 3.2 mEq/L (3.5-5.2); SODIUM 147 mEq/L (134-144)
[2016-10-14 01:45] VITALS: BP 109/74; O2SAT 96
== END 2016-10-14 01:13 | disposition home or self-care (01) ==
LOC: EDUNIT#
DX: J69.0 Pneumonitis due to inhalation of food and vomit (principal); E87.6 Hypokalemia; G20 Parkinson's disease; I25.10 Atherosclerotic heart disease of native coronary artery without angina pectoris; Z79.82 Long term (current) use of aspirin; Z87.891 Personal history of nicotine dependence; Z95.5 Presence of coronary angioplasty implant and graft
CPT/HCPCS: 96365

== ENCOUNTER → 2016-10-19 | Outpatient (CLI) | payer OTHER | LOC: FLAB 15:29 | PROVIDERS: ATTEND Family Medicine Sports Medicine | DX: J18.9 Pneumonia, unspecified organism (principal) ==

== ENCOUNTER 2016-11-07 14:58 | Inpatient (IN) | payer OTHER ==
--- NOTE | 2016-11-07 15:06 | EDPHY ---
HPI/HX/ROS/PE/MDM Narrative: CHIEF COMPLAINT: Dyspnea HPI: This patient is a 76-year-old male with history of Parkinson's disease who presents to the Emergency Department for frequent episodes of dyspnea over the past five weeks since he was diagnosed with aspiration pneumonia and admitted to the hospital on 10/05. His describes attacks of dyspnea since he was discharged home, increasing in frequency over the past week. She describes him as tachypneic and gasping for breath for up to hours before the episodes will resolve on their own. For the past few days, his attacks have lasted for half of the day. Per , pain medication often alleviates or improves the symptoms , but not always. He has been on a course of Cipro for the past ten days without improvement to his dyspnea, and took two prior courses of antibiotics without alleviation of these episodes. denies any evidence of additional complaints; no fever, chills, urinary difficulties, or changes to neurological deficits. REVIEW OF SYSTEMS: Aside from elements discussed in the HPI, a comprehensive 10-point review of systems was reviewed and is negative. 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 PHYSICAL EXAM: General:Patient is alert, in no acute distress. ENT:Eyes are normal to inspection. ENT inspection normal. Neck: Normal inspection. Full range of motion. Respiratory:No respiratory distress. Scattered rhonchi bilaterally. Cardiovascular: Regular rate and rhythm. Strong peripheral pulses. Normal cap refill. Abdomen:The abdomen is nontender to palpation. There are no peritoneal signs. There are normal bowel sounds. Back: Normal to inspection. No tenderness to palpation. Skin: Normal color. No rash. Warm and dry. Extremities: Normal appearance. Full range of motion. Neuro: Pill-rolling tremor. Motor and sensory function at baseline. No focal deficits. ED Course: This 76-year-old male with history of Parkinson's disease presents with worsening episodic dyspnea over the past five weeks since originally diagnosed with aspiration pneumonia on 10/05. He is resting comfortably at time of presentation. He has pill-rolling tremors but no focal neurological deficits. He has diffuse rhonchi bilaterally on exam. I reviewed prior medical records. The patient's bring with her results from CT of the chest on 10/30 from [facility] which indicated multi-focal pulmonary consolidation including left lower lobe and right upper lobe. Will proceed with labs, including D-dimer and Troponin, and chest x-ray. I discussed with the patient's plan for admission for further evaluation of his dyspnea; she expresses agreement to this. 1707: Chest x-ray results reviewed and discussed with Dr. Vidales, radiology. Pneumonia appears improved. I discussed these results with the patient and his . 1736: Consultation with Dr. Lilli Neff, hospitalist, who accepts admission. 1741: On reevaluation, the patient appears anxious and tachypneic, which reports is similar to his episodes at home. O2 saturation at 99% on RA despite his tachypnea. Will administer 1mg IV Morphine. D-dimer is elevated at 6.06. Will proceed with CTA of the chest. I discussed this with Dr. Neff. 1839: CTA is negative for PE per radiologist. MDM: This patient presents with worsening episodes of respiratory distress, in setting of Parkinsons and aspiration PNA. CXR suggests no active PNA at this time. It is unclear what is causing these episodes - anxiety is a possibility, as is aspiration/choking - but they have become quite debilitating. I see no evidence of PE, PTX, TAD or severe sepsis. - Data Points Imaging Results: Imaging Impressions Chest X-Ray 11/07/16 15:23 Impression: 1. Completely cleared right upper lobe pneumonia. Continued radiographic follow-up is recommended. 2. If occult to exclude a right pneumothorax vs skinfold. Consider noncontrast CT. A message was left for Dr. Slaughter in at 5:00 PM. Imaging: Discussed imaging studies w/ faculty i on call medical assistant Radiologist Laboratory Results: Laboratory Results 11/07/16 15:45 11/07/16 15:45 11/07/16 11/07/16 11/07/16 15:45 15:45 15:45 WBC 10.69 10^3/uL H 10^3/uL (3.80-9.50) RBC 3.94 10^6/uL L 10^6/uL (4.40-6.38) Hgb 12.5 g/dL L g/dL (13.7-17.5) Hct 38.4 % L % (40.0-51.0) MCV 97.5 fL fL (81.5-99.8) MCH 31.7 pg pg (27.9-34.1) MCHC 32.6 g/dL g/dL (32.4-36.7) RDW 14.6 % % (11.5-15.2) Plt Count 304 10^3/uL 10^3/uL (150-400) MPV 10.2 fL fL (8.7-11.7) Neut % (Auto) 83.1 % H % (39.3-74.2) Lymph % (Auto) 10.5 % L % (15.0-45.0) Bath % (Auto) 4.3 % L % (4.5-13.0) Eos % (Auto) 1.2 % % (0.6-7.6) Baso % (Auto) 0.4 % % (0.3-1.7) Nucleat RBC Rel Count 0.0 % % (0.0-0.2) Absolute Neuts (auto) 8.89 10^3/uL H 10^3/uL (1.70-6.50) Absolute Lymphs (auto) 1.12 10^3/uL 10^3/uL (1.00-3.00) Absolute Monos (auto) 0.46 10^3/uL 10^3/uL (0.30-0.80) Absolute Eos (auto) 0.13 10^3/uL 10^3/uL (0.03-0.40) Absolute Basos (auto) 0.04 10^3/uL 10^3/uL (0.02-0.10) Absolute Nucleated RBC 0.00 10^3/uL 10^3/uL (0-0.01) Immature Gran % 0.5 % % (0.0-1.1) Immature Gran # 0.05 10^3/uL 10^3/uL (0.00-0.10) D-Dimer 6.06 ug/mLFEU H ug/mLFEU (0.00-0.50) Sodium 143 mEq/L mEq/L (134-144) Potassium 3.8 mEq/L mEq/L (3.5-5.2) Chloride 106 mEq/L mEq/L (97-110) Carbon Dioxide 27 mEq/l mEq/l (22-31) Anion Gap 10 mEq/L mEq/L (8-16) BUN 13 mg/dL mg/dL (7-23) Creatinine 0.5 mg/dL L mg/dL (0.7-1.3) Estimated GFR > 60 Glucose 93 mg/dL mg/dL (70-100) Calcium 9.2 mg/dL mg/dL (8.5-10.4) Troponin I < 0.012 ng/mL ng/mL (0-0.034) NT-Pro-B Natriuret Pep 222 pg/mL H pg/mL (0-125) General Time Seen by Provider: 11/07/16 15:05 Initial Vital Signs: Initial Vital Signs Temperature (C) 36.8 C 11/07/16 15:02 Heart Rate 91 11/07/16 15:02 Respiratory Rate 20 11/07/16 15:02 Blood Pressure 105/64 11/07/16 15:02 O2 Sat (%) 94 11/07/16 15:02 O2 Delivery Mode Room Air Allergies/Adverse Reactions: meperidine HCl [From Demerol] Allergy (Severe, Verified 10/13/16 22:28) Hypotension Penicillins Allergy (Severe, Verified 10/13/16 22:28) Rash/HIVES secobarbital sodium [From Seconal] Allergy (Severe, Verified 10/13/16 22:28) Hypotension daptomycin Allergy (Intermediate, Verified 10/13/16 22:28) Rash lorazepam [From Ativan] Allergy (Mild, Verified 10/13/16 22:28) paridoxal effect nitrofurantoin [Nitrofurantoin] Allergy (Verified 10/13/16 22:28) prochlorperazine [From Compazine] Allergy (Verified 10/13/16 22:28) promethazine HCl [From Phenergan] Allergy (Verified 10/13/16 22:28) Home Medications: Medication Instructions Recorded Acetaminophen [Tylenol ES 500 mg 500 mg PO Q6 PRN 11/07/16 (*)] Albuterol [Proventil Inhaler HFA 1 - 2 puffs IH Q4H PRN 11/07/16 (*)] Aspirin EC [Aspirin EC 81 mg (*)] 162 mg PO HS 11/07/16 Budesonide/Formoterol 160/4.5 1 puffs IH BID 11/07/16 [Symbicort 160-4.5 Mcg Inh (*)] Carbidopa/Levodopa [Duopa 4.63 100 ml MC TID@,,11/07/16 mg-20 mg/ml Suspens] Cyanocobalamin [Vitamin B12 (*)] 500 mcg PO DAILY 11/07/16 Diclofenac Sodium [Voltaren 75 MG 75 mg PO Q12H PRN 11/07/16 (*)] Diclofenac Sodium [Voltaren Gel 1 beatriz TP BID PRN MDD two times per 11/07/16 (*)] day Finasteride [Proscar 5 MG (*)] 5 mg PO DAILY 11/07/16 Fluticasone Nasal [Flonase Nasal 2 sprays [place] DAILY 11/07/16 [place] (RX)] Folic Acid 0.8 mg PO DAILY 11/07/16 Herbals/Supplements -Info Only 1 ea PO DAILY 11/07/16 Hydrocodone/Acetaminophen [[place] 0.5 tab PO BID PRN 11/07/16 5/325 (*)] Methocarbamol [Robaxin 750 mg (*)] 750 mg PO Q6H PRN 11/07/16 Mirabegron [Myrbetriq] 25 mg PO HS 11/07/16 Omeprazole 40 mg PO DAILY 11/07/16 QUEtiapine FUMARATE [Seroquel 25 2.5 tab PO HS 11/07/16 mg (*)] Selegiline HCl [Eldepryl 5mg (*)] 5 mg PO BID@,11/07/16 Tamsulosin HCl [Flomax 0.4 MG (*)] 0.4 mg PO DAILY 11/07/16 cloZAPine [Clozapine] 75 mg PO HS 11/07/16 Departure - Departure Disposition: [facility] Clinical Impression: Parkinson's disease Dyspnea Qualifiers: Dyspnea type: shortness of breath Qualified Code(s): R06.02 - Shortness of breath Aspiration pneumonia Qualifiers: Aspiration pneumonia type: unspecified Laterality: bilateral Lung location: unspecified part of lung Qualified Code(s): J69.0 - Pneumonitis due to inhalation of food and vomit Condition: Fair Report Scribed for: Mike Luna Report Scribed by: Sarahi Moody Date of Report: 11/07/16 Time of Report: 15:06 Physician Review and Approval Statement: Portions of this note were transcribed by an ED scribe. I personally performed the history, physical exam, and medical decision making; and confirm the accuracy of the information in the transcribed note.
[2016-11-07 16:11] LABS: ANION GAP 10 mEq/L (8-16); CALCIUM 9.2 mg/dL (8.5-10.4); CARBON DIOXIDE 27 mEq/l (22-31); CHLORIDE 106 mEq/L (97-110); CREATININE 0.5 mg/dL (0.7-1.3); GLOMERULAR FILTRATION RATE > 60; GLUCOSE 93 mg/dL (70-100); POTASSIUM 3.8 mEq/L (3.5-5.2); SODIUM 143 mEq/L (134-144)
[2016-11-07 16:18] LABS: % IMMATURE GRANULYOCYTES 0.5 % (0.0-1.1); ABSOLUTE IMMATURE GRANULOCYTES 0.05 10^3/uL (0.00-0.10); ADD DIFF? NO; ADD MORPH? NO; ADD SCAN? YES; ATYPICAL LYMPHOCYTE FLAG 0 (0-99); FRAGMENT RBC FLAG 0 (0-99); HEMATOCRIT 38.4 % (40.0-51.0); HEMOGLOBIN 12.5 g/dL (13.7-17.5); LEFT SHIFT FLG 0 (0-99); LIPEMIA HEMOLYSIS FLAG 80 (0-99); MEAN CELL HEMOGLOBIN 31.7 pg (27.9-34.1); MEAN CELL HEMOGLOBIN CONCENTR. 32.6 g/dL (32.4-36.7); MEAN CELL VOLUME 97.5 fL (81.5-99.8); MEAN PLATELET VOLUME 10.2 fL (8.7-11.7); PLATELET COUNT 304 10^3/uL (150-400); RED BLOOD CELL COUNT 3.94 10^6/uL (4.40-6.38); RED CELL DISTRIBUTION WIDTH 14.6 % (11.5-15.2)
[2016-11-07 16:23] LABS: TROPONIN I < 0.012 ng/mL (0-0.034)
[2016-11-07 16:24] LABS: PLATELET CLUMPS FLAG 150 (0-99)
[2016-11-07 16:55] LABS: SCAN NEGATIVE
[2016-11-07] MEDS ORDERED: ONDANSETRON DISINTEGRATING 4 MG TAB PO PRN (17:55)
[2016-11-07] MEDS ORDERED: IOPAMIDOL (ISOVUE 370) 100 ML BTL IV ONE (17:55)
[2016-11-07] MEDS ORDERED: ACETAMINOPHEN 325 MG TAB PO PRN (17:55)
[2016-11-07] MEDS ORDERED: ONDANSETRON 4 MG/2 ML VIAL IVP PRN (17:55)
[2016-11-07] MEDS ORDERED: Diclofenac Sodium [Voltaren Gel (*)] 1 APP) TP PRN (17:56)
[2016-11-07] MEDS ORDERED: DICLOFENAC SODIUM 75 MG TAB PO PRN (17:56)
--- NOTE | 2016-11-07 20:01 | GHP ---
[f rep st] HISTORY AND PHYSICAL DATE OF ADMISSION: 11/07/2016 CHIEF COMPLAINT: Shortness of breath. HISTORY OF PRESENT ILLNESS: A 76-year-old male with advancing parkinsonian disease and known aspiration events and previous pneumonia, who presents with increasing episodes of severe dyspnea while at home. The patient and the described these rapidly on-setting episodes where the patient becomes short of breath, becomes tachypneic, dyspneic, frightened. The patient has been managing these at home on his own but then has noted increasing frequency of these episodes to several a day at times therefore presented to the emergency department for evaluation. He had recently been hospitalized in the outside hospital and has just recently completed a 10-day course of clindamycin for aspiration pneumonia and proceeded to that with a full dose of ciprofloxacin for the same. The patient denies any diarrhea. The patient runs constipated secondary to his parkinsonian medications. Denies any hematochezia , dysuria or hematuria. He does have BPH and chronic urinary retention with a history of frequent urinary tract infections as well. The patient has had recent weight loss with decreased p.o. intake. Reports chronic and slightly worsening back pain. Denies any new headaches or vision changes. Has chronic aspiration as mentioned above. PAST MEDICAL HISTORY: 1. Parkinson's, advanced with cognitive dysfunction and dysphagia. 2. Coronary artery disease. 3. History of left hip fracture from fall. 4. BPH. 5. Recurrent UTIs. SOCIAL HISTORY: Patient lives with his . Does not smoke, drink alcohol or use illicit drugs. FAMILY HISTORY: Positive for Parkinson. ADVANCED DIRECTIVES: The patient is full COR, full tube. His would be his medical decision maker. REVIEW OF SYSTEMS: A 10-point review of systems is negative with the exception of that reported in the HPI. PHYSICAL EXAMINATION: VITAL SIGNS: Blood pressure 125/73, heart rate 64, respiratory rate 18, 99% on room air, 37.1. GENERAL: This is a thin-appearing male, in no acute distress. HEENT: Notable for dry mucous membranes. Eye exam is negative for any icterus. CARDIAC: Patient is regular rate and rhythm. PULMONARY: Clear to auscultation bilaterally on anterior auscultation. GASTROINTESTINAL: Positive bowel sounds. ABDOMEN: Soft. MUSCULOSKELETAL: Negative for any lower extremity edema. SKIN: Negative for any rashes. NEUROLOGIC: Patient is alert and oriented x3. PSYCHIATRIC: He seems frightened on my interview and examination. DATA: Laboratory: White count is 10.6, recent baselines are 4-7. D-dimer 6.06. Sodium 143, creatinine 0.5. Troponin less than 0.012. CTA of the chest , which I personally reviewed and interpreted shows left lower lobe consolidation with scattered tree-in-bud nodules per Radiology. Atelectasis of the right upper lobe. No pulmonary embolism is appreciated. Chest x-ray, which I personally reviewed and interpreted, shows a cleared right upper lobe pneumonia from previous imaging. ASSESSMENT AND PLAN: This is a 76-year-old male with advanced Parkinson disease , presenting with episodes of shortness of breath. 1. Acute dyspnea. The patient is presenting with what appears to be improving radiographic findings. Room air saturation at 99% and CT imaging confirming no presence of pulmonary embolism. The patient has a known history of aspiration events with recent completion of both ciprofloxacin as well as clindamycin courses, the last of which was 10 days of clindamycin completing only days ago. I am concerned about empirically starting more antibiotics at this time as I do not believe he has a new overlying pneumonia. Blood cultures have been obtained from the emergency department. I will hold on antibiotics this evening , consulting infectious disease who have taken care of him during previous hospital stays and watch his clinical progression. I suspect the dyspnea may be anxiety related. We will monitor the patient closely so that we can see one of these episodes and watch the physiologic changes he experiences, we can better understand how to support and treat him through them. 2. Advancing Parkinson's. Patient has had weight loss and decrease in his overall functional status, certainly concerning for his disease progression. We will continue his home medications for Parkinson's and monitor closely. I have ordered PT, OT and speech therapy to help assist on the safest disposition planning. 3. History of benign prostatic hypertrophy with recurrent urinary tract infections. Patient does not have urinary symptoms at this time. Will not check urinalysis. 4. Leukocytosis. The patient has only a slight elevation in his white count. I am going to recheck in the morning as I suspect this may be stress related. Hopeful that it will come down overnight with supportive treatment and fluids alone. Again, will loop Infectious Disease into the conversation as they have evaluated the patient for his recurrent UTIs in the past and are well known to his aspiration episodes. Prophylaxis with Lovenox. 5. goals of care - I had an extensive conversation with the who has been increasingly struggling at home providing care and support. Her husbands health and cognitive status have been slowly declining and she needs help not only caring for him but managing time to care for herself. DIET: Regular with dietary consultation for nectar thick nourishment. DISPOSITION: Expecting greater than 2 midnights as the patient is presenting with a progressive condition hindering his functional status and overall health. I have discussed the case with the emergency room physician. Patient will be triaged to the medical-surgical floor for care. /[id number]/MODL MTDD
[2016-11-07] MEDS: BUDESONIDE/FORMOTEROL 160/4.5 60 PUFFS/MDI IH SCH (20:44)
[2016-11-07] MEDS ORDERED: BUDESONIDE/FORMOTEROL 80/4.5 60 PUFFS/MDI IH SCH (21:00)
[2016-11-07] MEDS ORDERED: Mirabegron [Myrbetriq] 25 MG PO SCH (21:00)
[2016-11-07] MEDS: cloZAPine 25 MG TAB PO SCH (21:14)
[2016-11-07] MEDS: ASPIRIN EC 81 MG TAB PO SCH (21:14)
[2016-11-07] MEDS: QUEtiapine FUMARATE 25 MG TAB PO SCH (21:16)
[2016-11-07] MEDS: CARBIDOPA MISC SCH (22:06)
[2016-11-07] MEDS: LEVODOPA MISC SCH (22:06)
[2016-11-08 05:25] LABS: % IMMATURE GRANULYOCYTES 0.4 % (0.0-1.1); ABSOLUTE IMMATURE GRANULOCYTES 0.04 10^3/uL (0.00-0.10); ADD DIFF? NO; ADD MORPH? NO; ADD SCAN? NO; ATYPICAL LYMPHOCYTE FLAG 10 (0-99); FRAGMENT RBC FLAG 0 (0-99); HEMOGLOBIN 10.9 g/dL (13.7-17.5); LEFT SHIFT FLG 0 (0-99); LIPEMIA HEMOLYSIS FLAG 80 (0-99); MEAN CELL HEMOGLOBIN 31.7 pg (27.9-34.1); MEAN CELL HEMOGLOBIN CONCENTR. 32.1 g/dL (32.4-36.7); MEAN CELL VOLUME 98.8 fL (81.5-99.8); MEAN PLATELET VOLUME 9.3 fL (8.7-11.7); PLATELET CLUMPS FLAG 0 (0-99); PLATELET COUNT 253 10^3/uL (150-400); RED BLOOD CELL COUNT 3.44 10^6/uL (4.40-6.38); RED CELL DISTRIBUTION WIDTH 14.8 % (11.5-15.2)
[2016-11-08 05:45] LABS: ANION GAP 7 mEq/L (8-16); CALCIUM 8.5 mg/dL (8.5-10.4); CARBON DIOXIDE 26 mEq/l (22-31); CHLORIDE 111 mEq/L (97-110); CREATININE 0.5 mg/dL (0.7-1.3); GLOMERULAR FILTRATION RATE > 60; GLUCOSE 78 mg/dL (70-100); POTASSIUM 3.6 mEq/L (3.5-5.2); SODIUM 144 mEq/L (134-144)
[2016-11-08] MEDS: SELEGILINE HCL 5 MG CAP PO SCH ×2 (05:45→13:57)
[2016-11-08] MEDS: LEVODOPA MISC SCH ×3 (05:47→22:10)
[2016-11-08] MEDS: CARBIDOPA MISC SCH ×3 (05:47→22:10)
[2016-11-08] MEDS: PANTOPRAZOLE SODIUM 40 MG TAB PO SCH (08:28)
[2016-11-08] MEDS: CYANO/VITAMIN B12 1000 MCG TAB PO SCH (08:28)
[2016-11-08] MEDS: TAMSULOSIN HCL 0.4 MG CAP PO SCH (08:28)
[2016-11-08] MEDS: FINASTERIDE 5 MG TAB PO SCH (08:28)
[2016-11-08] MEDS: FOLIC ACID 1 MG TAB PO SCH (08:28)
[2016-11-08] MEDS: FLUTICASONE NASAL 120 SPRAYS/16 GM MDI EACHNARE SCH (08:32)
[2016-11-08] MEDS: ENOXAPARIN 40 MG/0.4 ML SYR SC SCH (08:33)
[2016-11-08] MEDS ORDERED: Herbals/Supplements -Info Only PO SCH (09:00)
[2016-11-08] MEDS: BUDESONIDE/FORMOTEROL 160/4.5 60 PUFFS/MDI IH SCH ×2 (09:23→20:28)
--- NOTE | 2016-11-08 10:46 | WOCRNPDOC ---
WOCRN Advanced Assessment Note - Skin Integrity Problem, Advanced Assess Sacrum Pressure Injury Dressing Type: Open to Air Shayla Wound Tissue: Blanching, Erythema (to 5 cm shayla wound) Site Measurement - Head-to-Toe Length X Width X Depth (cm): 2x2x0 Pressure Injury Stage: Stage 1 Pressure Injury Present on Admit: Yes Skin Integrity Problem Comment: Non blanching area is along distal sacral edge close to the coccyx. Education done with patient about findings, plan, pressure injury prevention and treatment. Discussed air cushion and suggested he take it home when he is discharged. Xenia PINTO in room. Please reconsult wound care if wound opens or devolves.
[2016-11-08] MEDS: HYDROCODONE/APAP 5/325 TAB PO PRN ×2 (13:57→20:22)
[2016-11-08] MEDS: METHOCARBAMOL 750 MG TAB PO PRN (16:20)
[2016-11-08] MEDS: cloZAPine 25 MG TAB PO SCH (20:20)
[2016-11-08] MEDS: QUEtiapine FUMARATE 25 MG TAB PO SCH (20:21)
[2016-11-08] MEDS: ASPIRIN EC 81 MG TAB PO SCH (20:22)
[2016-11-08] MEDS: Mirabegron [Myrbetriq] 25 MG PO SCH (20:23)
[2016-11-09] MEDS: METHOCARBAMOL 750 MG TAB PO PRN ×3 (00:24→17:22)
[2016-11-09] MEDS: SELEGILINE HCL 5 MG CAP PO SCH ×2 (05:44→13:52)
[2016-11-09] MEDS: CARBIDOPA MISC SCH ×3 (05:45→21:44)
[2016-11-09] MEDS: LEVODOPA MISC SCH ×3 (05:45→21:44)
[2016-11-09 06:12] LABS: % IMMATURE GRANULYOCYTES 0.4 % (0.0-1.1); ABSOLUTE IMMATURE GRANULOCYTES 0.03 10^3/uL (0.00-0.10); ADD DIFF? NO; ADD MORPH? NO; ADD SCAN? NO; ATYPICAL LYMPHOCYTE FLAG 0 (0-99); FRAGMENT RBC FLAG 0 (0-99); HEMATOCRIT 35.2 % (40.0-51.0); HEMOGLOBIN 11.3 g/dL (13.7-17.5); LEFT SHIFT FLG 0 (0-99); LIPEMIA HEMOLYSIS FLAG 80 (0-99); MEAN CELL HEMOGLOBIN 31.7 pg (27.9-34.1); MEAN CELL HEMOGLOBIN CONCENTR. 32.1 g/dL (32.4-36.7); MEAN CELL VOLUME 98.9 fL (81.5-99.8); MEAN PLATELET VOLUME 9.7 fL (8.7-11.7); PLATELET CLUMPS FLAG 10 (0-99); PLATELET COUNT 239 10^3/uL (150-400); RED BLOOD CELL COUNT 3.56 10^6/uL (4.40-6.38); RED CELL DISTRIBUTION WIDTH 14.7 % (11.5-15.2)
[2016-11-09 06:34] LABS: ANION GAP 6 mEq/L (8-16); CALCIUM 8.6 mg/dL (8.5-10.4); CARBON DIOXIDE 27 mEq/l (22-31); CHLORIDE 108 mEq/L (97-110); CREATININE 0.5 mg/dL (0.7-1.3); GLOMERULAR FILTRATION RATE > 60; GLUCOSE 71 mg/dL (70-100); POTASSIUM 3.7 mEq/L (3.5-5.2); SODIUM 141 mEq/L (134-144)
[2016-11-09] MEDS: BUDESONIDE/FORMOTEROL 160/4.5 60 PUFFS/MDI IH SCH ×2 (10:43→20:40)
[2016-11-09] MEDS: FOLIC ACID 1 MG TAB PO SCH (11:03)
[2016-11-09] MEDS: TAMSULOSIN HCL 0.4 MG CAP PO SCH (11:03)
[2016-11-09] MEDS: CYANO/VITAMIN B12 1000 MCG TAB PO SCH (11:03)
[2016-11-09] MEDS: FINASTERIDE 5 MG TAB PO SCH (11:03)
[2016-11-09] MEDS: FLUTICASONE NASAL 120 SPRAYS/16 GM MDI EACHNARE SCH (11:04)
[2016-11-09] MEDS: PANTOPRAZOLE SODIUM 40 MG TAB PO SCH (11:04)
[2016-11-09] MEDS: ENOXAPARIN 40 MG/0.4 ML SYR SC SCH (11:14)
[2016-11-09] MEDS: HYDROCODONE/APAP 5/325 TAB PO PRN (14:01)
[2016-11-09] MEDS ORDERED: CALCIUM CARBONATE 500 MG CHEWABLE TAB PO PRN (15:14)
[2016-11-09] MEDS ORDERED: FAMOTIDINE 20 MG TAB PO PRN (15:14)
--- NOTE | 2016-11-09 15:19 | HOSPPROG ---
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 esophagram shows sluggish oropharynx Objective: Vital Signs Temp Pulse Resp BP Pulse Ox 36.8 C 78 18 134/81 H 94 11/09/16 07:12 11/09/16 10:48 11/09/16 10:48 11/09/16 07:12 11/09/16 10:48 Laboratory Results 11/09/16 05:15 11/09/16 05:15 11/08/16 11/09/16 11/10/16 05:59 05:59 05:59 Intake Total 900 1000 Output Total 700 475 Balance 200 525 - Physical Exam Constitutional: no apparent distress, appears nourished Eyes: PERRL, anicteric sclera Ears, Nose, Mouth, Throat: moist mucous membranes, hearing normal Cardiovascular: regular rate and rhythym, no murmur, rub, or gallop Respiratory: no respiratory distress, no rales or rhonchi Gastrointestinal: normoactive bowel sounds, soft, non-tender abdomen Genitourinary: No brown in urethra Skin: warm, normal color Musculoskeletal: No full muscle strength, No no muscle tenderness Neurologic: AAOx3, other (rigid) Psychiatric: interacting appropriately ICD10 Worksheet Patient Problems: Problems Problem Status Onset Aspiration pneumonia Acute Dyspnea Acute Parkinson's disease Acute Aspiration pneumonia Acute Chest pain Acute Weakness generalized Acute
--- NOTE | 2016-11-09 19:49 | NEUROPROG ---
Assessment: CC: Dr. Ismael Verduzco consulted neurology for advanced parkinson's disease. Results of this evaluation were placed in the EMR for her review. HPI: This 76M patient was initially seen 11/09/16 as an inpatient consult. He has a history of aspiration pneurmonia and presented to [facility] for episodes of severe dyspnea. Episodes include becoming SOB and frightened. He was recently hospitalized at another hospital for aspiration pneumonia. The hospitalist felt his dyspnea may be from partial anxiety as well as recent aspiration pneumonia. ID was consulted. The patient is followed by Dr. Patel (Movement Disorder Expert) in the outpatient setting whom manages him with Sinemet TID as well as other medications. Neurology was consulted for his paroxysms of hyperventilation with normal O2 sats. PMHx: advanced parkinson's disease, CAD, Hx L hip fx from fall, BPH, recurrent UTI's and urinary retention SHx: no drugs FHx: +parkinsonism ROS: Pt denied acute fever, total vision loss, active severe chest pain, respiratory failure, total body severe rash, total bowel/bladder incontinence, psychosis, active seizures, or active bleeding O: VS bp 134/81 P90 RR18 Satting 94% RA Temp 36.8C General: Alert Eyes: Fundoscopic exam not able to visualize optic disks CV: Heart RRR, no murmur, no carotid bruit Lungs: Clear to auscultation bilaterally, no rhonci or rales Neuro: - Mental: he has problems with awareness and becomes tangential easily, he does not seem to follow complex topics - Cranial Nerves: . II: PERRL, VFFTC . III/IV/: EOMI, no nystagmus, normal smooth pursuits, no Ptosis . V: facial sensation intact to LT . VII: face symmetric to eye closure and smile . VIII: hearing intact to conversation . IX/X: uvula raises symmetrically . XI: SCM 5/5 B/L strength . XII: tongue protrudes midline w/nl strength - Motor: . Tone: cogwheel rigidity in both arms, tremor in both hands . Strength: no pronator drift, strength 5/5 throughout (B/L delt, bic, tri, hand improvement leader, hf/he, df/pf) - Reflexes: B/L bic/BR/patella 2/4 - Sensory: all 4 extrem intact to light touch - Coord: [id number] wnl, TIFFANIE wnl, [id number] wnl - Gait: deferred Labs: 11/09/16- CBC Hct 35.2, Chem Anion gap 6L Cr 0.5L Rads: 11/07/16- CXR: 1. Completely cleared right upper lobe pneumonia. Continued radiographic follow-up is recommended. 2. If occult to exclude a right pneumothorax vs skinfold. Consider noncontrast CT (I personally visualized the images on 11/09/16) 11/07/16- CT Chest angio: 1. No visible pulmonary embolus. 2. Left lower lobe consolidation compatible with pneumonia with scattered tree-in-bud nodules that are likely inflammatory or infectious. 3. Mild linear consolidation in the right upper lobe with volume loss, most likely representing atelectasis. 4. Coronary artery atherosclerosis. 5. Probable secretions in the left mainstem bronchus. Assessment: 1.Advanced Parkinsons Disease: Likely his advanced parkinsons disease and the medication he is taking for it is causing his anxiety episodes as well as his problems with esophageal motility and breathing issues. I have no further therapy to offer at this time. He should continue to work with the movement disorder expert, Dr. Patel, in the outpatient setting. Plan: -No further inpatient neurology w/u or therapy needed at this time -F/U with Dr. Patel, movement disorder expert, after discharge Objective: Vital Signs Temp Pulse Resp BP Pulse Ox 36.7 C 84 18 115/73 94 11/09/16 16:04 11/09/16 16:04 11/09/16 16:04 11/09/16 16:04 11/09/16 16:04 Laboratory Results 11/09/16 05:15 11/09/16 05:15 11/08/16 11/09/16 11/10/16 05:59 05:59 05:59 Intake Total 900 1000 500 Output Total 700 475 120 Balance 200 525 380 Allergies/Adverse Reactions: meperidine HCl [From Demerol] Allergy (Severe, Verified 10/13/16 22:28) Hypotension Penicillins Allergy (Severe, Verified 10/13/16 22:28) Rash/HIVES secobarbital sodium [From Seconal] Allergy (Severe, Verified 10/13/16 22:28) Hypotension daptomycin Allergy (Intermediate, Verified 10/13/16 22:28) Rash lorazepam [From Ativan] Allergy (Mild, Verified 10/13/16 22:28) paridoxal effect nitrofurantoin [Nitrofurantoin] Allergy (Verified 10/13/16 22:28) prochlorperazine [From Compazine] Allergy (Verified 10/13/16 22:28) promethazine HCl [From Phenergan] Allergy (Verified 10/13/16 22:28)
[2016-11-09] MEDS: ASPIRIN EC 81 MG TAB PO SCH (21:25)
[2016-11-09] MEDS: QUEtiapine FUMARATE 25 MG TAB PO SCH (21:31)
[2016-11-09] MEDS: Mirabegron [Myrbetriq] 25 MG PO SCH (21:33)
[2016-11-09] MEDS: cloZAPine 25 MG TAB PO SCH (21:34)
[2016-11-10] MEDS: CARBIDOPA MISC SCH ×2 (05:33→14:19)
[2016-11-10] MEDS: LEVODOPA MISC SCH ×2 (05:33→14:19)
[2016-11-10] MEDS: SELEGILINE HCL 5 MG CAP PO SCH ×2 (05:52→14:59)
[2016-11-10] MEDS: METHOCARBAMOL 750 MG TAB PO PRN ×2 (08:05→11:07)
[2016-11-10] MEDS: BUDESONIDE/FORMOTEROL 160/4.5 60 PUFFS/MDI IH SCH (08:22)
[2016-11-10 08:26] VITALS: RESP 14; O2SAT 88
[2016-11-10 08:28] VITALS: TEMP 97.9
[2016-11-10] MEDS: PANTOPRAZOLE SODIUM 40 MG TAB PO SCH (10:56)
[2016-11-10] MEDS: FOLIC ACID 1 MG TAB PO SCH (10:56)
[2016-11-10] MEDS: FLUTICASONE NASAL 120 SPRAYS/16 GM MDI EACHNARE SCH (10:57)
[2016-11-10] MEDS: ENOXAPARIN 40 MG/0.4 ML SYR SC SCH (10:58)
[2016-11-10] MEDS: CYANO/VITAMIN B12 1000 MCG TAB PO SCH (11:05)
[2016-11-10] MEDS: TAMSULOSIN HCL 0.4 MG CAP PO SCH (11:06)
[2016-11-10] MEDS ORDERED: NS 500 ML IV ONE (13:03)
[2016-11-10] MEDS: FINASTERIDE 5 MG TAB PO SCH (14:25)
[2016-11-10 14:51] VITALS: BP 89/55; PULSE 88
--- NOTE | 2016-11-10 15:13 | PDIAF ---
- Diagnosis Diagnosis: parkinson's disease Code Status: Full Code - Medication Management Discharge Medications: Medications to Continue on Transfer Acetaminophen [Tylenol ES 500 mg (*)] 500 mg PO Q6 PRN 11/07/16 [Last Taken Unknown] Albuterol [Proventil Inhaler HFA (*)] 1 - 2 puffs IH Q4H PRN 11/07/16 [Last Taken 11/07/16] Aspirin EC [Aspirin EC 81 mg (*)] 162 mg PO HS 11/07/16 [Last Taken 11/06/16] Budesonide/Formoterol 160/4.5 [Symbicort 160-4.5 Mcg Inh (*)] 1 puffs IH BID [Last Taken Unknown] Carbidopa/Levodopa [Duopa 4.63 mg-20 mg/ml Suspens] 100 ml MC TID@,,11/07 [Last Taken 11/07/16 14:00 2 pumps] Cyanocobalamin [Vitamin B12 (*)] 500 mcg PO DAILY 11/07/16 [Last Taken 11/07/16] Diclofenac Sodium [Voltaren 75 MG (*)] 75 mg PO Q12H PRN 11/07/16 [Last Taken Unknown] Diclofenac Sodium [Voltaren Gel (*)] 1 beatriz TP BID PRN MDD two times per day [Last Taken Unknown] Finasteride [Proscar 5 MG (*)] 5 mg PO DAILY 11/07/16 [Last Taken 11/07/16] Fluticasone Nasal [Flonase Nasal [place]] 2 sprays EACHNARE DAILY 11/07/16 [Last Taken 11/07/16] Folic Acid 0.8 mg PO DAILY 11/07/16 [Last Taken 11/07/16] Herbals/Supplements -Info Only 1 ea PO DAILY 11/07/16 [Last Taken Unknown] Hydrocodone/Acetaminophen [[place] 5/325 (*)] 0.5 tab PO BID PRN 11/07/16 [Last Taken 11/07/16 0.5 TAB] Methocarbamol [Robaxin 750 mg (*)] 750 mg PO Q6H PRN 11/07/16 [Last Taken Unknown] Mirabegron [Myrbetriq] 25 mg PO HS 11/07/16 [Last Taken 11/06/16] Omeprazole 40 mg PO DAILY 11/07/16 [Last Taken 11/07/16] QUEtiapine FUMARATE [Seroquel 25 mg (*)] 2.5 tab PO HS 11/07/16 [Last Taken ] Selegiline HCl [Eldepryl 5mg (*)] 5 mg PO BID@06,14 11/07/16 [Last Taken 14:00] Tamsulosin HCl [Flomax 0.4 MG (*)] 0.4 mg PO DAILY 11/07/16 [Last Taken 11/07/16 ] cloZAPine [Clozapine] 75 mg PO HS 11/07/16 [Last Taken 11/06/16] Famotidine [Pepcid 20 MG (*)] 20 mg PO BID PRN #60 tab 11/10/16 [Last Taken Unknown] Discharge Medications: Refer to the Discharge Home Medication list for PRN reason. PICC Care - Routine: N/A - Orders Services needed: Registered Nurse, Physical Therapy, Occupational Therapy, Speech Language Pathologist Diet Recommendation: no restrictions on diet Diet Texture: Regular Texture Diet, [place] Thick Liquids, Meds Whole in Puree Wound Care Instructions: Bedsore (Pressure injury) care: You have a stage 1 pressure injury (also known as a bedsore) on the very lowest part of your back ( the sacrum.) To help heal this wound and avoid further injury please do the followin.Reposition yourself frequently, at least every 30 minutes when sitting. We recommend sitting on an air cushion. Please never use a doughnut. 2.When youre in bed, try to rest on your side as much as possible, and change position every two hours (for example, turn or tilt from your right side toward your left).~ If you sleep on a sleep number or medical bed, keep the head of the bed below 30 degrees and keep all pressure off your low back for at least 5 minutes at least every two hours.~. Please contact [facility] outpatient [facility] for an appointment, at [phone], If your wounds open or don t improve, or if you have any further questions or concerns. Kareen Flood MSc, BSN, CWON Activity/Weight Bearing Restrictions: transfer with assist, walker / wheelchair , ambulate as able - Follow Up Care Current Providers and Referrals: Julius Francois MD [Primary Care Provider] - As per Instructions EVGENY RICE [Non Staff Provider ()] -
--- NOTE | 2016-11-10 22:27 | GDS ---
[f rep st] DISCHARGE SUMMARY DISCHARGE DIAGNOSES: 1. Parkinson disease. 2. History of aspiration pneumonia with the presence of infiltrate on CT scan. Suspected likely re sidual, as patient has completed 2 courses of antibiotics and has been afebrile without leukocytosis or symptoms. 3. Paroxysmal dyspnea, likely neurologic in the setting of Parkinson disease. 4. Orthostatic hypotension. CONSULTANTS: Dr. Himanshu Morrissey, Neurology HISTORY: For details please see dictated history and physical dated November 07, 2016. In brief, the rossy yu is a 76-year-old male with a history of Parkinson disease and recent aspiration pneumonia stat us post 2 courses of antibiotic treatment, who presents to the Emergency Department with episodes of dyspnea. He was admitted to the hospital for further evaluation. HOSPITAL COURSE: The patient was admitted to the Medical-Surgical Unit. CT imaging on admission re vealed what looked like improving pneumonia by radiologic findings. He has recently completed a cou rse of both ciprofloxacin and clindamycin. He appeared nontoxic, remained afebrile during the hospi talization, and had a normal white blood cell count. There was some suspicion his dyspnea was anxie ty related, though we also considered a neurologic process and a Neurology consult was obtained. No further recommendations were made by Neurology. I would also consider possible vocal cord spasm ev ents that could be related to acid reflux, as I note he is treated with proton pump inhibitor. I urias ve added p.r.n. Zantac at discharge. Consideration was also given to aspiration as an etiology of h is acute dyspneic episodes. A Speech consultation was obtained and he had no evidence of aspiration event in 10/10 swallow tests. This may all be in the setting of advancing Parkinson syndrome. He is followed closely by Dr. Patel his outpatient neurologist and his Sinemet pump was continued while inpatient. He did have evidence of orthostatic hypotension, though per his 's report this is c hronic. I offered to start Midrin to help prevent this, though they declined this. He is overall f elt to be at his baseline, though he clearly does have advanced Parkinson symptoms, although given h is overall weakness, he will require SNF rehab. IMAGING STUDIES AND PROCEDURES: CT angiography of the chest was negative for pulmonary embolism. L eft lower lobe consolidation was present and previously treated. DISPOSITION: Patient is discharged to SNF rehab in stable condition. DISCHARGE MEDICATIONS: 1. Please see [employer] for completed, updated outpatient medication list. 2. New medications on discharge include Zantac 20 mg p.o. b.i.d. p.r.n. 3. He will continue all other outpatient medications as prescribed. FOLLOWUP: 1. Dr. Roman Patel, Neurology. 2. Julius Francois, primary care provider. /[id number]/MODL
== END 2016-11-10 18:00 | DRG 57 ==
LOC: OBSVTOIN 17:55 → F1N 18:43
PROVIDERS: ADMIT Hospitalist; ATTEND Hospitalist
DX: G20 Parkinson's disease (principal); R06.09 Other forms of dyspnea; R91.8 Other nonspecific abnormal finding of lung field; I95.1 Orthostatic hypotension; R13.10 Dysphagia, unspecified
CPT/HCPCS: 92526-GN; 92610-GN; 97110-GP; 97116-GP; 97162-GP; 97166-GO; 97530-GP; 97535-GO; G8978-GP-CL; G8979-GP-CI; G8987-GO-CL; G8988-GO-CJ; G8996-GN-CJ; G8997-GN-CJ; J1650; Q9967

== ENCOUNTER 2016-12-04 11:35 | Inpatient (IN) | payer OTHER ==
--- NOTE | 2016-12-04 11:56 | EDPHY ---
H & P Time Seen by Provider: 12/04/16 11:49 HPI/ROS: CHIEF COMPLAINT: Dyspnea HISTORY OF PRESENT ILLNESS: This patient is a 76-year-old male with advanced Parkinson's disease and known aspiration events who presents to the Emergency Department via EMS for complaints of dyspnea and hypoxemia worsening over the past three days. He was admitted for aspiration pneumonia in September and discharge home on clindamycin. He was last admitted on 11/07 for dyspnea and subsequently discharged on 11/10; CT showed probable residual LLL infiltrate so that patient was not started on antibiotics at that time. He has reportedly been feeling better until a few days ago, when he began to experience worsening cough and dyspnea persisting to present. He is regularly on 2L O2 at home but has required 4L O2 to maintain appropriate O2 saturation since that time. He reports that today's complaints are similar to prior episodes of pneumonia. Unclear if he's had a fever. He has a pump in place for his Parkinson's medication. REVIEW OF SYSTEMS: Constitutional: No fever, no chills Eyes: No visual changes ENT: No sore throat Respiratory: +cough, +shortness of breath Cardiac: No chest pain Gastrointestinal: No nausea, no vomiting, no abdominal pain Genitourinary: No hematuria, no dysuria Musculoskeletal: No leg pain or swelling Skin: No rash Neurological: No headache, no numbness, no weakness Psychiatric: No depression Past Medical/Surgical History: 1. Parkinson's, advanced with cognitive dysfunction and dysphagia 2. Coronary artery disease 3. BPH 4. Recurrent UTIs Prior medical records reviewed by myself: Patient was admitted on 10/05 for aspiration pneumonia and discharged on Clindamycin. He returned on 11/07 for complaint of dyspnea; CT showed LLL infiltrate thought to be residual to his prior pneumonia. He was not treated with antibiotics at that time. Social History: Lives at home with . Smoking Status: Former smoker Physical Exam: General Appearance: Alert, pleasant, no respiratory distress Eyes: Pupils equal and round, no conjunctival pallor or injection ENT, Mouth: Dry oral pharynx Neck: Normal inspection Respiratory: Expiratory rhonchi throughout, decreased BS on left Cardiovascular: Regular rate and rhythm Gastrointestinal: Abdomen is soft and non-tender Neurological: A&O, speech is slurred and difficult to understand Skin: Warm and dry, no rash Extremities: Nontender, bilateral pedal edema of the ankles Psychiatric: Mood and affect normal Constitutional: Initial Vital Signs Temperature (C) 36.4 C 12/04/16 11:49 Heart Rate 83 12/04/16 11:49 Respiratory Rate 18 12/04/16 11:49 Blood Pressure 101/61 12/04/16 11:49 O2 Sat (%) 92 12/04/16 11:49 O2 Delivery Mode Nasal Cannula O2 (L/minute) 4 Allergies/Adverse Reactions: meperidine HCl [From Demerol] Allergy (Severe, Verified 10/13/16 22:28) Hypotension Penicillins Allergy (Severe, Verified 10/13/16 22:28) Rash/HIVES secobarbital sodium [From [place]] Allergy (Severe, Verified 10/13/16 22:28) Hypotension daptomycin Allergy (Intermediate, Verified 10/13/16 22:28) Rash lorazepam [From Ativan] Allergy (Mild, Verified 10/13/16 22:28) paridoxal effect levofloxacin Allergy (Verified 12/04/16 14:01) nitrofurantoin [Nitrofurantoin] Allergy (Verified 10/13/16 22:28) prochlorperazine [From Compazine] Allergy (Verified 10/13/16 22:28) promethazine HCl [From Phenergan] Allergy (Verified 10/13/16 22:28) Home Medications: Medication Instructions Recorded Acetaminophen [Tylenol ES 500 mg 500 mg PO Q6 PRN 11/07/16 (*)] Albuterol [Proventil Inhaler HFA 1 - 2 puffs IH Q4H PRN 11/07/16 (*)] Aspirin EC [Aspirin EC 81 mg (*)] 162 mg PO HS 11/07/16 Carbidopa/Levodopa [Duopa 4.63 100 ml MC TID@,,11/07/16 mg-20 mg/ml Suspens] Diclofenac Sodium [Voltaren 75 MG 75 mg PO Q8H PRN 11/07/16 (*)] Diclofenac Sodium [Voltaren Gel 1 beatriz TP BID PRN MDD two times per 11/07/16 (*)] day Omeprazole 40 mg PO DAILY 11/07/16 QUEtiapine FUMARATE [Seroquel 25 2.5 tab PO HS 11/07/16 mg (*)] Selegiline HCl [Eldepryl 5mg (*)] 5 mg PO BID@06,14 11/07/16 Budesonide/Formoterol Fumarate 1 puffs IH DAILY 12/04/16 [Symbicort 80-4.5 Mcg Inhaler] Finasteride [Proscar 5 MG (*)] 5 mg PO DAILY 12/04/16 Fluticasone Nasal [Flonase Nasal 1 sprays NASAL DAILY 12/04/16 [place]] Hydrocodone/Acetaminophen [[place] 0.5 tab PO DAILY PRN 12/04/16 5/325 (*)] Ibuprofen [Motrin (*)] 200 mg PO DAILY PRN 12/04/16 Tamsulosin HCl [Flomax 0.4 MG (*)] 0.4 mg PO DAILY 12/04/16 cloZAPine [Clozaril (*)] 75 mg PO HS 12/04/16 Medical Decision Making - Diagnostics Imaging Results: CXR: left effusion/infiltrate Imaging: I viewed and interpreted images myself ED Course/Re-evaluation: 76-year-old male with advanced Parkinson's disease presents with complaints of dyspnea and increasing hypoxemia for the past 3 days. I reviewed prior medical records: History includes recurrent aspiration events and pneumonia; he was last discharged on 11/10. At time of arrival today, he is alert and responding appropriately to questions. O2 saturation is 92% on 4L O2. On exam, he has diffuse rhonchi on expiration. I suspect pneumonia. He does not meet SIRS criteria. Chest x-ray obtained and reveals left-sided pleural effusion/infiltrate suspicious for aspiration pneumonia. 1 gram IV Invanz administered. Labs reviewed: WBC acutely elevated at 12.64. Anemia at baseline. Lactate at 1.1. 1243: Consultation with Dr. Becky Frye, hospitalist, who accepts admission. 1256: Dr. Francois, the patient's' PCP, is at bedside. Plan is to transition the pt to hospice. The pt remained stable throughout his ED stay. Differential Diagnosis: includes though not limited to pneumonia, empyema, pulm edema, ACS, bronchitis, PE - Data Points Laboratory Results: Laboratory Results 12/04/16 11:46 12/04/16 11:46 Microbiology Results: MICROBIOLOGY 12/04/16 11:46 Blood Blood Culture - Preliminary 12/04/16 12:30 Blood Blood Culture - Preliminary Medications Given: Discontinued Medications Acetaminophen (Tylenol) 650 mg PO Q4HRS PRN PRN Reason: Pain, Mild/Fever, Can Take PO Stop: 06/02/17 16:12 Last Admin: 12/05/16 21:09 Dose: 650 mg Budesonide/Formoterol Fumarate (Symbicort 160-4.5 Mcg Inhaler) 0 puffs IH BID REUBEN Stop: 06/02/17 20:59 Last Admin: 12/06/16 09:24 Dose: 1 puffs Clozapine (Clozaril) 75 mg PO HS REUBEN Stop: 06/02/17 20:59 Last Admin: 12/05/16 20:57 Dose: 75 mg Finasteride (Proscar) 5 mg PO DAILY REUBEN Stop: 06/03/17 08:59 Last Admin: 12/06/16 07:37 Dose: 5 mg Fluticasone Propionate (Flonase Nasal [place]) 1 sprays EACHNARE BID REUBEN Stop: 06/02/17 20:59 Last Admin: 12/05/16 09:40 Dose: 1 spray Fluticasone Propionate (Flonase Nasal [place]) 1 sprays EACHNARE DAILY REUBEN Stop: 06/02/17 20:59 Last Admin: 12/06/16 07:37 Dose: 1 spray Ertapenem 1 gm/ Sodium (Chloride) 100 mls @ 200 mls/hr IV EDNOW ONE PRN Reason: Protocol Stop: 12/04/16 13:10 Last Admin: 12/04/16 13:18 Dose: 100 mls Sodium Chloride (Ns) 1,000 mls @ 75 mls/hr IV CONT REUBEN Stop: 12/06/16 05:34 Last Admin: 12/04/16 18:07 Dose: 1,000 mls Ertapenem 1 gm/ Sodium (Chloride) 100 mls @ 200 mls/hr IV DAILY REUBEN PRN Reason: Protocol Stop: 01/04/17 09:59 Last Admin: 12/05/16 10:43 Dose: 100 mls Miscellaneous Medication (Mirabegron [Myrbetriq]) 0 mg PO HS REUBEN Stop: 06/02/17 20:59 Last Admin: 12/05/16 20:52 Dose: 25 mg Miscellaneous Medication (Carbidopa/Levodopa [Duopa 4.63 Mg-20 Mg/Ml Suspens]) 0 ml MC TID@,, REUBEN Stop: 06/02/17 21:59 Last Admin: 12/06/16 06:25 Dose: 1 applic Oxymetazoline HCl (Afrin Nasal [place]) 1 sprays EACHNARE DAILY REUBEN Stop: 06/03/17 08:59 Last Admin: 12/06/16 07:39 Dose: Not Given Pantoprazole Sodium (Protonix) 40 mg PO DAILY REUBEN Stop: 06/03/17 08:59 Last Admin: 12/06/16 07:37 Dose: 40 mg Quetiapine Fumarate (Seroquel) 62.5 mg PO HS REUBEN Stop: 06/02/17 20:59 Last Admin: 12/05/16 20:53 Dose: 62.5 mg Selegiline HCl (Eldepryl) 5 mg PO BID@ REUBEN Stop: 06/03/17 05:59 Last Admin: 12/06/16 07:37 Dose: 5 mg Tamsulosin HCl (Flomax) 0.4 mg PO DAILY REUBEN Stop: 06/03/17 08:59 Last Admin: 12/06/16 07:37 Dose: 0.4 mg Departure - Departure Disposition: [facility] Inpatient Acute Clinical Impression: Pleural effusion Pneumonia Qualifiers: Pneumonia type: aspiration pneumonia Aspiration pneumonia type: unspecified Laterality: left Lung location: lower lobe of lung Qualified Code(s): J69.0 - Pneumonitis due to inhalation of food and vomit Condition: Fair Report Scribed for: Yumiko Rasmussen Report Scribed by: Sarahi Moody Date of Report: 12/04/16 Time of Report: 12:14 Physician Review and Approval Statement: 12/04/16 12:14 Portions of this note were transcribed by a vice president medical affairs. I personally performed a history, physical exam, medical decision making, and confirmed accuracy of information the transcribed note.
[2016-12-04 12:11] LABS: % IMMATURE GRANULYOCYTES 0.4 % (0.0-1.1); ABSOLUTE IMMATURE GRANULOCYTES 0.05 10^3/uL (0.00-0.10); ADD DIFF? NO; ADD MORPH? NO; ADD SCAN? NO; ATYPICAL LYMPHOCYTE FLAG 0 (0-99); FRAGMENT RBC FLAG 0 (0-99); HEMOGLOBIN 11.4 g/dL (13.7-17.5); LEFT SHIFT FLG 0 (0-99); LIPEMIA HEMOLYSIS FLAG 80 (0-99); MEAN CELL HEMOGLOBIN 31.6 pg (27.9-34.1); MEAN CELL HEMOGLOBIN CONCENTR. 31.7 g/dL (32.4-36.7); MEAN CELL VOLUME 99.7 fL (81.5-99.8); MEAN PLATELET VOLUME 9.8 fL (8.7-11.7); PLATELET CLUMPS FLAG 10 (0-99); PLATELET COUNT 271 10^3/uL (150-400); RED BLOOD CELL COUNT 3.61 10^6/uL (4.40-6.38); RED CELL DISTRIBUTION WIDTH 15.4 % (11.5-15.2)
[2016-12-04 12:19] LABS: INR 1.29 (0.83-1.16); PROTIME(PATIENT) 16.1 SEC (12.0-15.0)
[2016-12-04 12:20] LABS: APTT 31.6 SEC (23.0-38.0)
[2016-12-04 12:29] LABS: ANION GAP 9 mEq/L (8-16); BILIRUBIN,TOTAL 1.2 mg/dL (0.1-1.4); CALCIUM 8.6 mg/dL (8.5-10.4); CARBON DIOXIDE 28 mEq/l (22-31); CHLORIDE 104 mEq/L (97-110); CREATININE 0.5 mg/dL (0.7-1.3); GLOMERULAR FILTRATION RATE > 60; GLUCOSE 88 mg/dL (70-100); POTASSIUM 4.1 mEq/L (3.5-5.2); SODIUM 141 mEq/L (134-144)
[2016-12-04] MEDS ORDERED: ERTAPENEM 1 GM in NS 100 ML IV ONE (12:41)
[2016-12-04 15:00] LABS: LACTATE DEHYDROGENASE 573 IU/L (313-618)
[2016-12-04] MEDS ORDERED: LIDOCAINE 1% 300 MG/30 ML SDV ONE (15:43)
[2016-12-04] MEDS ORDERED: ONDANSETRON 4 MG/2 ML VIAL IVP PRN (16:13)
[2016-12-04] MEDS ORDERED: ONDANSETRON DISINTEGRATING 4 MG TAB PO PRN (16:13)
[2016-12-04] MEDS ORDERED: HYDROCODONE/APAP 5/325 TAB PO PRN (16:14)
[2016-12-04] MEDS ORDERED: IBUPROFEN 200 MG TAB PO PRN (16:14)
[2016-12-04] MEDS ORDERED: NON-FORMULARY NEW DRUG (Diclofenac Sodium [Voltaren Gel (*)] 1 APP) TP PRN (16:14)
[2016-12-04] MEDS ORDERED: ALBUTEROL 60 PUFFS/8 GM MDI IH PRN (16:14)
[2016-12-04] MEDS ORDERED: DICLOFENAC SODIUM 75 MG TAB PO PRN (16:14)
[2016-12-04] MEDS ORDERED: ACETAMINOPHEN 500 MG TAB PO PRN (16:14)
[2016-12-04] MEDS ORDERED: NS 1,000 ML IV SCH (16:15)
[2016-12-04] MEDS ORDERED: ALBUTEROL 200 PUFFS/18 GM MDI IH PRN (16:24)
[2016-12-04] MEDS ORDERED: DICLOFENAC SODIUM TP PRN (16:32)
--- NOTE | 2016-12-04 17:24 | GHP ---
[f rep st] HISTORY AND PHYSICAL DATE OF ADMISSION: 12/04/2016 CHIEF COMPLAINT: Shortness of breath. HISTORY OF PRESENT ILLNESS: This is a 76-year-old male with a history of end-stage Parkinson's. He has been admitted a couple of times recently for aspiration pneumonia. After his last aspiration p neumonia in September, he has declined significantly per his . He presents with increasing shortnes s of breath, which has been going on for a few days now. He has had worsening cough but no fevers o r chills. No chest pain. His mental status is worsening. REVIEW OF SYSTEMS: Limited review of systems was obtained secondary to patient's altered, decreased mental status. Pertinent positives and negatives in the HPI. PAST MEDICAL HISTORY: 1. Advanced end-stage Parkinson disease. 2. Chronic dysphagia due to Parkinson's. 3. Coronary artery disease. 4. BPH. 5. Recurrent urinary tract infections. SOCIAL HISTORY: Patient lives with his . No smoking or alcohol. FAMILY HISTORY: Positive for Parkinson's. PHYSICAL EXAM: VITAL SIGNS: Afebrile, blood pressure is 104/67, heart rate 83, oxygen saturation 9 4% on 4 L. GENERAL: The patient is cachectic, chronically ill appearing, but in no apparent distre ss. HEENT: Nonicteric sclerae. Extraocular muscles are intact. Dry mucous membranes. NECK: Sup ple. No thyromegaly. LUNGS: Fair effort. Decreased breath sounds in the left side with some rhon chi. CARDIOVASCULAR: Regular rate and rhythm. No murmurs, gallops. ABDOMEN: Positive bowel soun ds. Soft, nontender, nondistended. No hepatosplenomegaly. EXTREMITIES: No clubbing, cyanosis, or edema. SKIN: Without rash. Warm, dry, and intact. NEUROLOGIC: Alert, does respond to some ques tions. Moving all extremities but does have evident significant tremor. PSYCH: Normal mood and af fect. LABS: White blood cell count 12, hemoglobin 11, platelets are 271. Chemistry is normal. Chest x-r ay personally reviewed and interpreted, shows a large left pleural effusion. ASSESSMENT: A 76-year-old male with end-stage Parkinson's, presenting with probable aspiration pneu monia and a large pleural effusion. PLAN: 1. Aspiration pneumonia with effusion. I did have a long discussion with both and primary car e doctor. Primary care doctor is setting up home hospice for this patient. I do feel that draining the fluid might make him a little bit more comfortable in the meantime. Thus, we will go ahead wit h thoracentesis today. We will treat with IV Invanz until he gets transferred to home with home hos pice. I think with the drainage of his effusion, we will not need as much Roxanol to treat his dysp edy, but we will add a little bit. 2. Advanced Parkinson's, as above. 3. Admission: Patient will be admitted under full admission status. Case discussed with Primary C are Physician. Old records reviewed and summarized in the HPI. /[id number]/MODL
--- NOTE | 2016-12-04 17:58 | WOCRNPDOC ---
[facility]BERT[facility] Advanced Assessment Note - Skin Integrity Problem, Advanced Assess Coccyx Dressing Type: Allevyn Life Dressing Description: Clean/Dry, Intact Exudate Amount: Minimal Integumentary Issue Intervention: Visualized Under Dressing Jayna Wound Tissue: Blanching, Erythema, Non-blanching Wound Bed Color: Red, Yellow Wound Bed Constitution: Granulation Tissue (30% proximal, 10% distal), Adhered Slough (70% (proximal) 90% distal) Site Measurement - Head-to-Toe Length X Width X Depth (cm): Proximal: 1x1x0.3, Distal: 0.6x0.6x0.3 Pressure Injury Stage: Unstageable (x2 ) Pressure Injury Present on Admit: Yes Skin Integrity Problem Comment: Bilateral heels blanching but leung red. Please offload at all times. Report given to BLAIR Guillen regarding findings. Area difficult to assess due to patient's inability to tolerate HOB lowering r/t SOB. Turn side to side with TAPS. Wound care will round again Friday 12/08. Left Ischial Tuberosity Pressure Injury Dressing Type: Open to Air Site Measurement - Head-to-Toe Length X Width X Depth (cm): 3x1x0 Pressure Injury Stage: Stage 1 Pressure Injury Present on Admit: Yes Skin Integrity Problem Comment: Right Ischial tuberosity non erythematic.
[2016-12-04] MEDS ORDERED: QUEtiapine FUMARATE 25 MG TAB PO SCH (21:00)
[2016-12-04] MEDS ORDERED: NON-FORMULARY NEW DRUG (Mirabegron [Myrbetriq] 25 MG) PO SCH (21:00)
[2016-12-04] MEDS ORDERED: cloZAPine 25 MG TAB PO SCH ×2 (21:00)
[2016-12-04] MEDS: (Mirabegron [Myrbetriq] 25 MG) PO SCH (21:33)
[2016-12-04] MEDS: QUEtiapine FUMARATE 25 MG TAB PO SCH (21:33)
[2016-12-04] MEDS: cloZAPine 25 MG TAB PO SCH (21:34)
[2016-12-04] MEDS: FLUTICASONE NASAL 120 SPRAYS/16 GM MDI EACHNARE SCH (21:34)
[2016-12-04] MEDS ORDERED: LEVODOPA MC SCH (22:00)
[2016-12-04] MEDS ORDERED: CARBIDOPA MC SCH (22:00)
[2016-12-04] MEDS: CARBIDOPA MC SCH (22:59)
[2016-12-04] MEDS: LEVODOPA MC SCH (22:59)
[2016-12-05] MEDS ORDERED: SELEGILINE HCL 5 MG CAP PO SCH (06:00)
[2016-12-05] MEDS: BUDESONIDE/FORMOTEROL 160/4.5 60 PUFFS/MDI IH SCH ×3 (06:17→20:43)
[2016-12-05] MEDS: CARBIDOPA MC SCH ×3 (06:26→22:35)
[2016-12-05] MEDS: LEVODOPA MC SCH ×3 (06:26→22:35)
[2016-12-05] MEDS: SELEGILINE HCL 5 MG CAP PO SCH ×2 (06:33→14:46)
[2016-12-05] MEDS ORDERED: NON-FORMULARY NEW DRUG (Omeprazole [Omeprazole] 40 MG) PO SCH (09:00)
[2016-12-05] MEDS: PANTOPRAZOLE SODIUM 40 MG TAB PO SCH (09:38)
[2016-12-05] MEDS: FINASTERIDE 5 MG TAB PO SCH (09:38)
[2016-12-05] MEDS: TAMSULOSIN HCL 0.4 MG CAP PO SCH (09:38)
[2016-12-05] MEDS: FLUTICASONE NASAL 120 SPRAYS/16 GM MDI EACHNARE SCH (09:40)
[2016-12-05] MEDS ORDERED: ERTAPENEM 1 GM in NS 100 ML IV SCH (10:00)
[2016-12-05] MEDS: OXYMETAZOLINE 30 ML NASAL SPRAY EACHNARE SCH (10:44)
--- NOTE | 2016-12-05 16:05 | HOSPPROG ---
Hospitalist Progress Note Assessment/Plan: Aspiration pneumonia with effusion in 76 yo male with advanced Parkinson's disease and CAD. Case discussed with pt's , RN, and WORK STATION SUPPORT SPECIALIST. Thoracentesis was deferred as fluid was quite loculated and ultimately declined procedure. would like him to come home on hospice and does not wish to continue antibiotics. [facility] arranging for home needs and RN support. Will dc home in AM. Subjective: Pt is resting comfortably. No fevers. Objective: Vital Signs Temp Pulse Resp BP Pulse Ox 36.2 C 88 18 97/60 L 100 12/05/16 14:58 12/05/16 14:58 12/05/16 14:58 12/05/16 14:58 12/05/16 14:58 12/04/16 12/05/16 12/06/16 05:59 05:59 05:59 Intake Total 200 Output Total 200 Balance 0 PT 16.1 SEC (12.0-15.0) H 12/04/16 11:46 INR 1.29 (0.83-1.16) H 12/04/16 11:46 - Physical Exam Constitutional: chronically ill appearing Eyes: PERRL Cardiovascular: regular rate and rhythym Respiratory: no respiratory distress Skin: warm ICD10 Worksheet Patient Problems: Problems Problem Status Onset Aspiration pneumonia Acute Aspiration pneumonia Acute Chest pain Acute Dyspnea Acute Parkinson's disease Acute Weakness generalized Acute
[2016-12-05] MEDS: ACETAMINOPHEN 325 MG TAB PO PRN ×2 (17:34→21:09)
[2016-12-05] MEDS: (Mirabegron [Myrbetriq] 25 MG) PO SCH (20:52)
[2016-12-05] MEDS: QUEtiapine FUMARATE 25 MG TAB PO SCH (20:53)
[2016-12-05] MEDS: cloZAPine 25 MG TAB PO SCH (20:57)
[2016-12-06] MEDS: LEVODOPA MC SCH (06:25)
[2016-12-06] MEDS: CARBIDOPA MC SCH (06:25)
[2016-12-06 07:16] VITALS: BP 127/79; PULSE 86; RESP 20; TEMP 97; O2SAT 97
[2016-12-06] MEDS: PANTOPRAZOLE SODIUM 40 MG TAB PO SCH (07:37)
[2016-12-06] MEDS: FINASTERIDE 5 MG TAB PO SCH (07:37)
[2016-12-06] MEDS: TAMSULOSIN HCL 0.4 MG CAP PO SCH (07:37)
[2016-12-06] MEDS: SELEGILINE HCL 5 MG CAP PO SCH (07:37)
[2016-12-06] MEDS: OXYMETAZOLINE 30 ML NASAL SPRAY EACHNARE SCH (07:39)
--- NOTE | 2016-12-06 08:55 | PDIAF ---
- Diagnosis Diagnosis: aspiration peumonia Code Status: Do Not Resuscitate - Medication Management Discharge Medications: Medications to Continue on Transfer Acetaminophen [Tylenol ES 500 mg (*)] 500 mg PO Q6 PRN 11/07/16 [Last Taken Unknown] Albuterol [Proventil Inhaler HFA (*)] 1 - 2 puffs IH Q4H PRN 11/07/16 [Last Taken 11/07/16] Aspirin EC [Aspirin EC 81 mg (*)] 162 mg PO HS 11/07/16 [Last Taken 12/03/16] Carbidopa/Levodopa [Duopa 4.63 mg-20 mg/ml Suspens] 100 ml MC TID@,,11/07 [Last Taken 12/04/16 06:00] Diclofenac Sodium [Voltaren 75 MG (*)] 75 mg PO Q8H PRN 11/07/16 [Last Taken Unknown] Diclofenac Sodium [Voltaren Gel (*)] 1 beatrzi TP BID PRN MDD two times per day [Last Taken Unknown] Omeprazole 40 mg PO DAILY 11/07/16 [Last Taken 12/03/16] QUEtiapine FUMARATE [Seroquel 25 mg (*)] 2.5 tab PO HS 11/07/16 [Last Taken ] Selegiline HCl [Eldepryl 5mg (*)] 5 mg PO BID@11/07/16 [Last Taken 14:00] Budesonide/Formoterol Fumarate [Symbicort 80-4.5 Mcg Inhaler] 1 puffs IH DAILY 12/04/16 [Last Taken 12/03/16] Finasteride [Proscar 5 MG (*)] 5 mg PO DAILY 12/04/16 [Last Taken 12/03/16] Fluticasone Nasal [Flonase Nasal [place]] 1 sprays NASAL DAILY 12/04/16 [Last Taken Unknown] Hydrocodone/Acetaminophen [[place] 5/325 (*)] 0.5 tab PO DAILY PRN 12/04/16 [Last Taken 12/04/16] Ibuprofen [Motrin (*)] 200 mg PO DAILY PRN 12/04/16 [Last Taken Unknown] Tamsulosin HCl [Flomax 0.4 MG (*)] 0.4 mg PO DAILY 12/04/16 [Last Taken 12/03/16 ] cloZAPine [Clozaril (*)] 75 mg PO HS 12/04/16 [Last Taken 12/03/16] Discharge Medications: Refer to the Discharge Home Medication list for PRN reason. - Orders Services needed: Home [facility] Face to Face: I certify that this patient was under my care and that I had the required [id number] encounter meeting the encounter requirements on the discharge day. My findings support the fact that the patient is homebound as defined in CMS Chapter 7 Medicare Benefits Manual 30.1.1, The condition of the patient is such that there exists a normal inability to leave home and consequently, leaving home would require a considerable and taxing effort. Oxygen: prn for comfort / hypoxemia Diet Recommendation: no restrictions on diet Wound Care Instructions: Bedsore (Pressure injury) care: You have two unstagable pressure injuries (full thickness), also known as a bedsore, on the very lowest part of your back (the sacrum) and tailbone (coccyx). To help heal this wound and avoid further injury please do the followin.Reposition yourself frequently, at least every 15 minutes when sitting. We recommend sitting on an air cushion. Please never use a doughnut. 2.When youre in bed, try to rest on your side as much as possible, and change position every two hours (for example, turn or tilt from your right side toward your left).~ If you sleep on a sleep number or medical bed, keep the head of the bed below 30 degrees and keep all pressure off your low back for at least 5 minutes at least every two hours.~. 3.As needed, you may use Calazime, dimethicone moisture barrier cream, or any [id number] diaper rash cream to help prevent or treat a moisture-related rash to your bottom area, groin and buttocks. Please follow up within 3 weeks of discharge with outpatient wound healing center: You may reach them at [phone] for an appointment and continued management of your wounds. Please call them faizan to schedule your appointment as they fill up quickly. Wound care for home: Change dressings to coccyx/sacrum every 4 days and prn. 1. Clean with ns and gauze. 2. Skin prep shayla wound. 3. Honey gel to wound beds, cover with 2 tiny pieces of telfa just to cover the wounds. 4. Cover with Allevyn Life. Kareen Flood CWJACINDA Additional: [facility] - Follow Up Care Current Providers and Referrals: Patient,NotPresent [Unknown] - As per Instructions
[2016-12-06] MEDS ORDERED: FLUTICASONE NASAL 120 SPRAYS/16 GM MDI EACHNARE SCH (09:00)
[2016-12-06] MEDS: BUDESONIDE/FORMOTEROL 160/4.5 60 PUFFS/MDI IH SCH (09:24)
--- NOTE | 2016-12-07 06:56 | GDS ---
[f rep st] DISCHARGE SUMMARY DISCHARGE DIAGNOSES: 1. Aspiration pneumonia. 2. Pleural effusion. 3. Advanced Parkinson's. HISTORY OF PRESENT ILLNESS: Please see the history and physical dated 12/04. In brief, the patient is a 76-year-old male with end-stage Parkinson disease who has recently been admitted for recurrent aspiration pneumonia. Since his last hospitalization in September he has continued to decline. He ret urns to the emergency department with shortness of breath and worsening cough. He was found again t o have an aspiration pneumonia and was admitted to the hospital for further management. HOSPITAL COURSE: Upon further conversation with the patient's and primary care doctor by the a dmitting physician, home hospice was offered and the patient's wished to proceed with taking th e patient home to be on hospice. Initially there was a plan to do a thoracentesis for comfort thoug h the pleural fluid appeared quite loculated on the chest ultrasound and this was ultimately deferre d. No antibiotics were initiated at the wishes of the patient's . DISPOSITION: Patient was discharged home on [facility]. DISCHARGE MEDICATIONS: Please see [facility] for complete updated outpatient medication list. Will d efer further comfort care and medications to the hospice team. /[id number]/MODL
== END 2016-12-06 12:00 | disposition hospice, home (50) | DRG 178 ==
LOC: EDUNIT# → F3E 13:55
PROVIDERS: ADMIT Internal Medicine; ATTEND Internal Medicine
DX: J69.0 Pneumonitis due to inhalation of food and vomit (principal); J90 Pleural effusion, not elsewhere classified; G20 Parkinson's disease; L89.150 Pressure ulcer of sacral region, unstageable; L89.321 Pressure ulcer of left buttock, stage 1
CPT/HCPCS: 96365; J1335